=== PATIENT | female | born 1990 | race American Indian/Alaskan Native ===

== ENCOUNTER 2017-10-13 05:24 | Emergency (ER) | payer MEDICAID ==
[2017-10-13 05:31] VITALS: BP 124/75
--- NOTE | 2017-10-13 08:14 | XRay Report ---
FINAL REPORT PROCEDURE: XR CHEST ROUTINE 2V TECHNIQUE: PA and lateral views HISTORY: cough COMPARISON: None FINDINGS: The trachea is midline. The heart is normal in size. The lungs are clear. There is no evident pneumothorax or pleural fluid. The thoracic cage is intact. IMPRESSION: No radiographically evident acute cardiopulmonary disease
--- NOTE | 2017-10-13 08:14 | Emergency Department Report ---
- General Chief Complaint: Upper Respiratory Infection Stated Complaint: COUGH; CONGESTION; EARACHE Time Seen by Provider: 10/13/17 07:13 Source: patient Mode of arrival: Ambulatory Limitations: No Limitations - History of Present Illness Initial Comments: This is a 27-year-old female nontoxic, well nourished in appearance, no acute signs of distress presents to the ED with c/o of cough, nasal congestion, and bilateral earache x2 days. Patient describes cough as productive with yellow mucus production. Patient denies any recent travels, long car rides, or recent hospital stays. Patient denies any chest pain, shortness of breathe, fever, chills, headache, nausea, vomiting, numbness, tingling, stiff neck, blurry vision, hemoptysis. Denies any calf pain or tenderness. Patient denies any allergies or PMH. MD Complaint: cough, rhinorrhea, nasal congestion -: days(s) (2) Severity: mild Severity scale (0 -10): 8 Quality: aching Consistency: constant Improves With: nothing Worsens With: nothing Associated Symptoms: rhinorrhea, nasal congestion, cough, ear pain. denies: fever, chills, myalgias, diaphoresis, headache, sore throat, stiff neck, chest pain, shortness of breath, abdominal pain, nausea, vomiting, diarrhea, dysuria, rash, confusion, right sweats, weight loss, epistaxis, hoarseness Treatments Prior to Arrival: none - Related Data Previous Rx's Medication Instructions Recorded Last Taken Type Azithromycin [Zithromax Z-NIYAH] 250 mg PO DAILY #6 tablet 10/13/17 Unknown Rx Benzonatate [Tessalon Perle] 100 mg PO Q8H PRN #20 capsule 10/13/17 Unknown Rx Allergies Allergy/AdvReac Type Severity Reaction Status Date / Time No Known Allergies Allergy Verified 02/10/16 11:03 ED Review of Systems ROS: Stated complaint: COUGH; CONGESTION; EARACHE Other details as noted in HPI Constitutional: denies: chills, fever Eyes: denies: eye pain, eye discharge, vision change ENT: ear pain. denies: throat pain Respiratory: cough. denies: shortness of breath, wheezing Cardiovascular: denies: chest pain, palpitations Endocrine: no symptoms reported Gastrointestinal: denies: abdominal pain, nausea, diarrhea Genitourinary: denies: urgency, dysuria, discharge Musculoskeletal: denies: back pain, joint swelling, arthralgia Skin: denies: rash, lesions Neurological: denies: headache, weakness, paresthesias Psychiatric: denies: anxiety, depression Hematological/Lymphatic: denies: easy bleeding, easy bruising ED Past Medical Hx - Past Medical History Previous Medical History?: No Hx Hypertension: No Hx Congestive Heart Failure: No Hx Diabetes: No Hx Deep Vein Thrombosis: No Hx Renal Disease: No Hx Sickle Cell Disease: No Hx Seizures: No Hx Asthma: No Hx COPD: No Hx HIV: No Additional medical history: Vaginal delivery x 2 - Surgical History Past Surgical History?: No - Social History Smoking Status: Current Every Day Smoker Substance Use Type: None - Medications Home Medications: Home Medications Medication Instructions Recorded Confirmed Last Taken Type Azithromycin [Zithromax Z-NIYAH] 250 mg PO DAILY #6 tablet 10/13/17 Unknown Rx Benzonatate [Tessalon Perle] 100 mg PO Q8H PRN #20 capsule 10/13/17 Unknown Rx ED Physical Exam - General Limitations: No Limitations General appearance: alert, in no apparent distress - Head Head exam: Present: atraumatic, normocephalic, normal inspection - Eye Eye exam: Present: normal appearance, PERRL, EOMI. Absent: scleral icterus, conjunctival injection, nystagmus, periorbital swelling, periorbital tenderness Pupils: Present: normal accommodation - ENT ENT exam: Present: normal exam, normal orophraynx, mucous membranes moist, TM's normal bilaterally, normal external ear exam - Neck Neck exam: Present: normal inspection, full ROM. Absent: tenderness, meningismus, lymphadenopathy, thyromegaly - Respiratory Respiratory exam: Present: normal lung sounds bilaterally. Absent: respiratory distress, wheezes, rales, rhonchi, stridor, chest wall tenderness, accessory muscle use, decreased breath sounds, prolonged expiratory - Cardiovascular Cardiovascular Exam: Present: regular rate, normal rhythm, normal heart sounds. Absent: irregular rhythm, systolic murmur, diastolic murmur, rubs, gallop - GI/Abdominal GI/Abdominal exam: Present: soft, normal bowel sounds. Absent: distended, tenderness, guarding, rebound, rigid, diminished bowel sounds - Rectal Rectal exam: Present: deferred - Extremities Exam Extremities exam: Present: normal inspection, full ROM, normal capillary refill. Absent: tenderness, pedal edema, joint swelling, calf tenderness - Back Exam Back exam: Present: normal inspection, full ROM. Absent: tenderness, CVA tenderness (R), CVA tenderness (L), muscle spasm, paraspinal tenderness, vertebral tenderness, rash noted - Neurological Exam Neurological exam: Present: alert, oriented X3, CN II-XII intact, normal gait, reflexes normal - Psychiatric Psychiatric exam: Present: normal affect, normal mood - Skin Skin exam: Present: warm, dry, intact, normal color. Absent: rash ED Course Vital Signs 10/13/17 05:28 Temperature 98.5 F Pulse Rate 91 H Respiratory 18 Rate Blood Pressure 124/75 O2 Sat by Pulse 99 Oximetry - Reevaluation(s) Reevaluation #1: 10/13/17 08:30 Patient is speaking in full sentences with no signs of distress noted. ED Medical Decision Making - Medical Decision Making This is a 27-year-old female that presents with upper resp infection. Patient is stable and was examined by me. Chest xray has been obtained and dictated by radiologist with normal exam. Patient was notified of xray results with no questions noted. Patient is d/c with ruth and Jorge Marshall. Patient was instructed Follow-up with a primary care doctor in 3-5 days or if symptoms worsen and continue return to emergency room as soon as possible. At time time of discharge, the patient does not seem toxic or ill in appearance. No acute signs of distress noted. Patient agrees to discharge treatment plan of care. No further questions noted by the patient. Critical care attestation.: If time is entered above; I have spent that time in minutes in the direct care of this critically ill patient, excluding procedure time. ED Disposition Clinical Impression: Upper respiratory infection Qualifiers: URI type: unspecified URI Qualified Code(s): J06.9 - Acute upper respiratory infection, unspecified Disposition: - TO HOME OR SELFCARE Is pt being admited?: No Does the pt Need Aspirin: No Condition: Stable Instructions: Benzonatate (By mouth), Azithromycin (By mouth), Upper Respiratory Infection (ED) Additional Instructions: Follow-up with a primary care doctor in 3-5 days or if symptoms worsen and continue return to emergency room as soon as possible. Prescriptions: Azithromycin [Zithromax Z-NIYAH] 250 mg PO DAILY #6 tablet Benzonatate [Tessalon Perle] 100 mg PO Q8H PRN #20 capsule PRN Reason: Cough Referrals: SHAYY OWENS MD [Primary Care Provider] - 3-5 Days KEISHA MCKENZIE MD [Staff Physician] - 3-5 Days [facility] [place]Note 3[facility] [Outside] - 3-5 Days [facility] [Outside] - 3-5 Days Forms: Work/School Release Form(ED)
== END 2017-10-13 09:45 | disposition home or self-care (01) ==
LOC: ED 05:24
DX: J06.9 Acute upper respiratory infection, unspecified (principal); F17.200 Nicotine dependence, unspecified, uncomplicated
CPT/HCPCS: 71020

== ENCOUNTER 2017-11-18 13:33 | Emergency (ER) | payer MEDICAID ==
[2017-11-18 14:16] VITALS: BP 105/68
[2017-11-18 16:05] LABS: Basophils % (Auto) 0.2 % (0.0-1.8); Eosinophils # (Auto) 0.1 K/mm3 (0.0-0.4); Eosinophils % (Auto) 0.9 % (0.0-4.3); Hematocrit 33.7 % (30.3-42.9); Hemoglobin 10.4 gm/dl (10.1-14.3); Lymphocytes # (Auto) 0.8 K/mm3 (1.2-5.4); Lymphocytes % (Auto) 8.9 % (13.4-35.0); Mean Corpuscular HGB Conc 31 % (30-34); Mean Corpuscular Volume 72 fl (79-97); Monocytes # (Auto) 0.6 K/mm3 (0.0-0.8); Platelet Count 279 K/mm3 (140-440); Red Blood Count 4.67 M/mm3 (3.65-5.03); Red Cell Distribution Width 17.6 % (13.2-15.2)
[2017-11-18 16:11] LABS: Mean Corpuscular Hemoglobin 22 pg (28-32)
[2017-11-18 16:14] LABS: Bilirubin,Urine NEG (Negative); Blood,Urine LG (Negative); Color,Urine Yellow (Yellow); Mucus,Urine FEW /HPF; Nitrite,Urine NEG (Negative); Urobilinogen,Urine < 2.0 mg/dL (<2.0)
[2017-11-18 16:14] LABS: Alanine Aminotransferase 34 units/L (7-56); Albumin 4.2 g/dL (3.9-5); BUN/Creatinine Ratio 17; Blood Urea Nitrogen 10 mg/dL (7-17); Hemolysis Index 10
--- NOTE | 2017-11-18 21:48 | Emergency Department Report ---
HPI - General Chief Complaint: Abdominal Pain Time Seen by Provider: 11/18/17 20:48 - HPI HPI: Patient is a 27-year-old female who presents to ED with a five-year daughter complaining of nausea and one episode of vomiting that happened earlier today. Patient's mother states that she emboli that was made by a friend last night. Patient denies abdominal pain, fever, diarrhea or constipation. She has denies dysuria, vaginal bleeding or any urogenital symptoms. Patient states last menstrual period was 11/18/2017 and is currently on her cycle ED Past Medical Hx - Past Medical History Previous Medical History?: No Hx Hypertension: No Hx Congestive Heart Failure: No Hx Diabetes: No Hx Deep Vein Thrombosis: No Hx Renal Disease: No Hx Sickle Cell Disease: No Hx Seizures: No Hx Asthma: No Hx COPD: No Hx HIV: No Additional medical history: Vaginal delivery x 2 - Surgical History Past Surgical History?: No - Social History Smoking Status: Never Smoker Substance Use Type: None - Medications Home Medications: Home Medications Medication Instructions Recorded Confirmed Last Taken Type Azithromycin [Zithromax Z-NIYAH] 250 mg PO DAILY #6 tablet 10/13/17 Unknown Rx Benzonatate [Tessalon Perle] 100 mg PO Q8H PRN #20 capsule 10/13/17 Unknown Rx ED Review of Systems ROS: Stated complaint: ABDOMINAL PAIN Other details as noted in HPI Constitutional: denies: chills, fever Eyes: denies: eye pain, eye discharge, vision change ENT: denies: ear pain, throat pain Respiratory: denies: cough, shortness of breath, wheezing Cardiovascular: denies: chest pain, palpitations Endocrine: no symptoms reported Gastrointestinal: vomiting. denies: abdominal pain, nausea, diarrhea, constipation, hematochezia Genitourinary: denies: urgency, dysuria, discharge Musculoskeletal: denies: back pain, joint swelling, arthralgia Skin: denies: rash, lesions Neurological: denies: headache, weakness, paresthesias Psychiatric: denies: anxiety, depression Hematological/Lymphatic: denies: easy bleeding, easy bruising Physical Exam - Physical Exam Vital Signs: Vital Signs 11/18/17 14:14 Temperature 98.4 F Pulse Rate 78 Respiratory 16 Rate Blood Pressure 105/68 O2 Sat by Pulse 99 Oximetry Physical Exam: GENERAL: Alert and oriented x3, no apparent distress, Normal Gait, atraumatic. HEAD: Head is normocephalic and a-traumatic. MOUTH:Mouth is well hydrated and without lesions. Tonsils nonerythematous or swollen, Uvula midline, Tongue not elevated. Mucous membranes are moist. Posterior pharynx clear, no exudate or lesions. Patent airways. LUNGS: Symetrical with respiration, No wheezing, no rales or crackles, CTAB. HEART: S1, S2 present, regular rate and rhythm without murmur ABDOMEN: No organomegaly was noted,Positive bowel sounds, soft, and non- distended. . Nontender to palpation on all Quadrants, NO CVA tenderness. BACK: Full range of motion, no spinal tenderness, nontender to palpation. SKIN: Warm and dry, No lesions, No ulceration or induration present. ED Course Vital Signs 11/18/17 14:14 Temperature 98.4 F Pulse Rate 78 Respiratory 16 Rate Blood Pressure 105/68 O2 Sat by Pulse 99 Oximetry ED Medical Decision Making - Lab Data Result diagrams: 11/18/17 15:40 11/18/17 15:40 - Medical Decision Making 27 -year-old female presents with mild gastroenteritis from ingested food ED course: CBC, urinalysis, CMP ordered. All labs within normal limits no abnormalities Patient able to tolerate fluids by mouth in the ED. Patient is resting comfortably in ED bed., I discussed with the pt to follow-up with primary care physician in 3-5 days. I discussed with the mother's symptoms worsen to return to ED. I discussed with mother to avoid fatty foods and stick to soft diet. Vital signs are normal patient is in no acute distress Critical care attestation.: If time is entered above; I have spent that time in minutes in the direct care of this critically ill patient, excluding procedure time. ED Disposition Clinical Impression: Gastroenteritis Food poisoning Qualifiers: Encounter type: initial encounter Injury intent: accidental or unintentional Qualified Code(s): T62.91XA - Toxic effect of unspecified noxious substance eaten as food, accidental (unintentional), initial encounter Disposition: - TO HOME OR SELFCARE Is pt being admited?: No Does the pt Need Aspirin: No Condition: Stable Instructions: Gastroenteritis (ED), Food Poisoning (ED), Abdominal Pain (ED) Additional Instructions: Make sure to follow up with the primary care physician as discussed. If you have any worsening symptoms or develop new symptoms please return to ED immediately. Drink plenty of fluids daily. Avoid fatty foods and eating outside Referrals: IOANA ASHRAF MD [Primary Care Provider] - 3-5 Days Forms: Work/School Release Form(ED) Time of Disposition: 21:45
== END 2017-11-18 22:00 | disposition home or self-care (01) ==
LOC: ED 13:33
DX: T62.8X1A Toxic effect of other specified noxious substances eaten as food, accidental (unintentional), initial encounter (principal); K52.89 Other specified noninfective gastroenteritis and colitis; Y92.89 Other specified places as the place of occurrence of the external cause
CPT/HCPCS: 36415; 80053; 81001; 85025; 99283

== ENCOUNTER 2018-02-23 10:35 | Emergency (ER) | payer MEDICAID ==
[2018-02-23 10:50] VITALS: BP 121/75
[2018-02-23 11:19] LABS: Hematocrit 29.4 % (30.3-42.9); Hemoglobin 8.8 gm/dl (10.1-14.3); Mean Corpuscular HGB Conc 30 % (30-34); Platelet Count 389 K/mm3 (140-440); Red Blood Count 4.27 M/mm3 (3.65-5.03); Red Cell Distribution Width 19.5 % (13.2-15.2)
[2018-02-23 11:33] LABS: Mean Corpuscular Hemoglobin 21 pg (28-32); Mean Corpuscular Volume 69 fl (79-97)
[2018-02-23] MEDS ORDERED: TYLENOL PO ONE (11:59)
[2018-02-23 12:17] LABS: Bilirubin,Urine NEG (Negative); Blood,Urine LG (Negative); Color,Urine Yellow (Yellow); Mucus,Urine 1+ /HPF; Urobilinogen,Urine < 2.0 mg/dL (<2.0)
--- NOTE | 2018-02-23 12:29 | Emergency Department Report ---
HPI - General Chief Complaint: Vaginal Bleeding Time Seen by Provider: 02/23/18 11:55 - HPI HPI: The patient is a 27-year-old female who presents for evaluation of abdominal pain and vaginal bleeding. The patient reports 3 weeks of lower crampy abdominal pain and persistent vaginal bleeding. She states her abdominal pain is crampy in quality, mild in severity, exacerbated with position changes, waxing and waning. Her vaginal bleeding has been severe and constant. The patient denies fever, chills, night sweats, diarrhea, blood in the stool, dark tarry stool, dysuria, hematuria, hematemesis, recurrent epistaxis, easy bruising or bleeding, flank pain, genital discharge, inability to pass flatus. ED Past Medical Hx - Past Medical History Hx Hypertension: No Hx Congestive Heart Failure: No Hx Diabetes: No Hx Deep Vein Thrombosis: No Hx Renal Disease: No Hx Sickle Cell Disease: No Hx Seizures: No Hx Asthma: No Hx COPD: No Hx HIV: No Additional medical history: Vaginal delivery x 2 - Social History Smoking Status: Never Smoker - Medications Home Medications: Home Medications Medication Instructions Recorded Confirmed Last Taken Type Azithromycin [Zithromax Z-NIYAH] 250 mg PO DAILY #6 tablet 10/13/17 Unknown Rx Benzonatate [Tessalon Perle] 100 mg PO Q8H PRN #20 capsule 10/13/17 Unknown Rx medroxyPROGESTERone ACETATE 5 mg PO QDAY #5 tablet 02/23/18 Unknown Rx [Provera] traMADol [Ultram 50 MG tab] 50 mg PO Q6HR PRN #12 tablet 02/23/18 Unknown Rx ED Review of Systems ROS: Stated complaint: VAGINAL BLEEDING Other details as noted in HPI Constitutional: denies: fever ENT: denies: throat or neck pain Respiratory: denies: cough, shortness of breath Cardiovascular: denies: chest pain Endocrine: denies unexplained weight loss or gain Gastrointestinal: denies: abdominal pain, nausea Genitourinary: denies: dysuria Musculoskeletal: denies: leg swelling Skin: denies: rash Neurological: denies: headache Hematological/Lymphatic: denies: easy bleeding or easy bruising Psych: denies sadness or hopelessness Physical Exam - Physical Exam Vital Signs: Vital Signs 02/23/18 10:46 Temperature 98.2 F Pulse Rate 95 H Respiratory 19 Rate Blood Pressure 121/75 O2 Sat by Pulse 100 Oximetry Physical Exam: General: well-nourished, well-developed, no acute distress Head: Normocephalic, atraumatic Eyes: normal sclera ENT: Mucous membranes are pink and moist Neck: trachea midline, neck supple, No neck stiffness, no cervical adenopathy Respiratory: Breath sounds equal bilaterally, no wheezing, rales, or rhonchi Cardio: S1 and S2 present, no murmurs, rubs, gallops, capillary refill is brisk Abdomen: Normoactive bowel sounds, soft abdomen, she will be tenderness to palpation present, no pain at McBurney's point, Hernandez sign negative, no rigidity, no guarding or rebound tenderness Chest WALL/Back: No tenderness to palpation of the chest wall, no CVA tenderness with percussion Musc: No pitting edema Skin: No rash Neuro: no facial drooping, normal speech Psych: Normal affect ED Course Vital Signs 02/23/18 10:46 Temperature 98.2 F Pulse Rate 95 H Respiratory 19 Rate Blood Pressure 121/75 O2 Sat by Pulse 100 Oximetry ED Medical Decision Making - Lab Data Result diagrams: 02/23/18 10:56 - Medical Decision Making The patient was seen and examined by myself. The patient is placed on a telemetry monitor and continuous pulse ox. On initial evaluation, the patient was found to be in no distress. Evaluation orders are placed. The patient given a tablet of Tylenol for pain. Lab results revealed mild anemia, hemoglobin 8, and otherwise labs were not concerning including normal platelet level and negative test. The patient was reevaluated and reported that their symptoms were markedly improved. The patient is stable for discharge with outpatient follow-up. The patient is given follow-up and return instructions. The patient expressed understanding and agreed with the plan. The patient is discharged in stable condition. Critical care attestation.: If time is entered above; I have spent that time in minutes in the direct care of this critically ill patient, excluding procedure time. ED Disposition Clinical Impression: Vaginal bleeding, DUB (dysfunctional uterine bleeding), Acute non intractable tension-type headache, Anemia due to chronic blood loss Disposition: TO HOME OR SELFCARE Is pt being admited?: No Does the pt Need Aspirin: No Condition: Stable Instructions: Dysfunctional Uterine Bleeding (ED), Acute Headache (ED), Menstruation (ED) Referrals: IOANA ASHARF MD [Primary Care Provider] - 3-5 Days [facility] [Provider Group] - 3-5 Days MEAGHAN CALLOWAY MD [Staff Physician] - 3-5 Days Time of Disposition: 12:12
[2018-02-23 12:30] LABS: Anisocytosis 1+; Hypochromasia 1+; Total Cells Counted 100
[2018-02-23 12:31] LABS: Platelet Estimate Consistent w Auto
== END 2018-02-23 12:52 | disposition home or self-care (01) ==
LOC: ED 10:35
DX: N93.8 Other specified abnormal uterine and vaginal bleeding (principal); G44.209 Tension-type headache, unspecified, not intractable; D50.0 Iron deficiency anemia secondary to blood loss (chronic)
CPT/HCPCS: 36415; 81001; 84703; 85007; 85025; 86850; 86900; 86901

== ENCOUNTER 2018-02-27 09:49 | Emergency (ER) | payer OTHER, MEDICAID ==
[2018-02-27 10:10] VITALS: BP 135/86
[2018-02-27] MEDS ORDERED: MOTRIN PO ONE (10:33)
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
== END 2018-02-27 11:50 | disposition home or self-care (01) ==
LOC: ED 09:49
DX: S13.4XXA Sprain of ligaments of cervical spine, initial encounter (principal); S39.012A Strain of muscle, fascia and tendon of lower back, initial encounter; F17.200 Nicotine dependence, unspecified, uncomplicated; V49.49XA Driver injured in collision with other motor vehicles in traffic accident, initial encounter; Y93.89 Activity, other specified; Y92.89 Other specified places as the place of occurrence of the external cause; Y99.8 Other external cause status
CPT/HCPCS: 99282

== ENCOUNTER 2018-03-03 15:56 | Emergency (ER) | payer MEDICAID, OTHER ==
[2018-03-03 16:15] VITALS: BP 122/76
[2018-03-03] MEDS ORDERED: TYLENOL ONE (19:44)
[2018-03-03] MEDS ORDERED: TYLENOL PO ONE (19:47)
--- NOTE | 2018-03-03 20:45 | Emergency Department Report ---
ED Female HPI - General Chief complaint: Urogenital-Female Stated complaint: VAGINAL ITCHING/BUMPS Time Seen by Provider: 03/03/18 19:59 Source: patient Mode of arrival: Ambulatory Limitations: No Limitations - History of Present Illness Initial comments: This is a 27-year-old female nontoxic, well nourished in appearance, no acute signs of distress presents to the ED with c/o of vaginal discharge and itching x2 days. Patient stated she is not concerned about STD but will like to be tested. Patient stated that she just finished a course of antibiotics for a possible STD. Patient denies any abdominal pain, fever, chills, headache, nausea, vomiting, chest pain, shortness of breathe, back pain, numbness or tingling. Patient denies any vaginal bleeding. Patient denies any allergies or PMH. MD Complaint: vaginal discharge, other (itching) -: days(s) (2) Severity: mild Quality: other (itching) Consistency: constant Improves with: none Worsens with: none Are you Now?: No Last Menstrual Period: 01/13/18 EDC: 10/20/18 Associated Symptoms: vaginal discharge. denies: vaginal bleeding, abdominal pain, nausea/vomiting, fever/chills, headaches, loss of appetite, dysuria, hematuria, rash, seizure, shortness of breath, syncope, weakness - Related Data Sexually active: Yes Previous Rx's Medication Instructions Recorded Last Taken Type Azithromycin [Zithromax Z-NIYAH] 250 mg PO DAILY #6 tablet 10/13/17 Unknown Rx Benzonatate [Tessalon Perle] 100 mg PO Q8H PRN #20 capsule 10/13/17 Unknown Rx medroxyPROGESTERone ACETATE 5 mg PO QDAY #5 tablet 02/23/18 Unknown Rx [Provera] traMADol [Ultram 50 MG tab] 50 mg PO Q6HR PRN #12 tablet 02/23/18 Unknown Rx Cyclobenzaprine [Flexeril] 10 mg PO QHS PRN #7 tablet 02/27/18 Unknown Rx Ibuprofen [Motrin] 600 mg PO Q8H PRN #30 tablet 02/27/18 Unknown Rx Fluconazole [Diflucan TAB] 150 mg PO ONCE #1 tablet 03/03/18 Unknown Rx metroNIDAZOLE [Flagyl] 500 mg PO Q12HR #14 tab 03/03/18 Unknown Rx Allergies Allergy/AdvReac Type Severity Reaction Status Date / Time No Known Allergies Allergy Verified 02/10/16 11:03 ED Review of Systems ROS: Stated complaint: VAGINAL ITCHING/BUMPS Other details as noted in HPI Constitutional: denies: chills, fever Eyes: denies: eye pain, eye discharge, vision change ENT: denies: ear pain, throat pain Respiratory: denies: cough, shortness of breath, wheezing Cardiovascular: denies: chest pain, palpitations Endocrine: no symptoms reported Gastrointestinal: denies: abdominal pain, nausea, diarrhea Genitourinary: discharge. denies: urgency, dysuria Musculoskeletal: denies: back pain, joint swelling, arthralgia Skin: denies: rash, lesions Neurological: denies: headache, weakness, paresthesias Psychiatric: denies: anxiety, depression Hematological/Lymphatic: denies: easy bleeding, easy bruising ED Past Medical Hx - Past Medical History Hx Hypertension: No Hx Congestive Heart Failure: No Hx Diabetes: No Hx Deep Vein Thrombosis: No Hx Renal Disease: No Hx Sickle Cell Disease: No Hx Seizures: No Hx Asthma: No Hx COPD: No Hx HIV: No Additional medical history: Vaginal delivery x 2 - Social History Smoking Status: Never Smoker Substance Use Type: Alcohol - Medications Home Medications: Home Medications Medication Instructions Recorded Confirmed Last Taken Type Azithromycin [Zithromax Z-NIYAH] 250 mg PO DAILY #6 tablet 10/13/17 Unknown Rx Benzonatate [Tessalon Perle] 100 mg PO Q8H PRN #20 capsule 10/13/17 Unknown Rx medroxyPROGESTERone ACETATE 5 mg PO QDAY #5 tablet 02/23/18 Unknown Rx [Provera] traMADol [Ultram 50 MG tab] 50 mg PO Q6HR PRN #12 tablet 02/23/18 Unknown Rx Cyclobenzaprine [Flexeril] 10 mg PO QHS PRN #7 tablet 02/27/18 Unknown Rx Ibuprofen [Motrin] 600 mg PO Q8H PRN #30 tablet 02/27/18 Unknown Rx Fluconazole [Diflucan TAB] 150 mg PO ONCE #1 tablet 03/03/18 Unknown Rx metroNIDAZOLE [Flagyl] 500 mg PO Q12HR #14 tab 03/03/18 Unknown Rx ED Physical Exam - General Limitations: No Limitations General appearance: alert, in no apparent distress - Head Head exam: Present: atraumatic, normocephalic - Eye Eye exam: Present: normal appearance - ENT ENT exam: Present: normal exam, mucous membranes moist - Neck Neck exam: Present: normal inspection, full ROM. Absent: tenderness, meningismus - Respiratory Respiratory exam: Present: normal lung sounds bilaterally. Absent: respiratory distress, wheezes, rales, rhonchi, stridor, chest wall tenderness, accessory muscle use, decreased breath sounds, prolonged expiratory - Cardiovascular Cardiovascular Exam: Present: regular rate, normal rhythm, normal heart sounds. Absent: bradycardia, tachycardia, irregular rhythm, systolic murmur, diastolic murmur, rubs, gallop - GI/Abdominal GI/Abdominal exam: Present: soft, normal bowel sounds. Absent: distended, tenderness, guarding, rebound, rigid, diminished bowel sounds - Rectal Rectal exam: Present: deferred - External exam: Present: normal external exam, other (order booker Deepika present during exam). Absent: erythema, swelling, lesions, lacerations, ecchymosis, bleeding Speculum exam: Present: normal speculum exam, cervical discharge (cottage cheese in appearance), other (order booker Deepika present during exam). Absent: erythema, vaginal discharge, vaginal bleeding, foreign body, tissue, laceration Bi-manual exam: Present: normal bi-manual exam, other (order booker Deepika present during exam). Absent: cervical motion tendernes, adnexal tenderness, adnexal mass, uterine enlargement, uterine tenderness - Extremities Exam Extremities exam: Present: normal inspection, full ROM, normal capillary refill - Back Exam Back exam: Present: normal inspection, full ROM - Neurological Exam Neurological exam: Present: alert, oriented X3 - Psychiatric Psychiatric exam: Present: normal affect, normal mood - Skin Skin exam: Present: warm, dry, intact, normal color. Absent: rash ED Course Vital Signs 03/03/18 16:11 Temperature 99.5 F Pulse Rate 84 Respiratory 17 Rate Blood Pressure 122/76 O2 Sat by Pulse 99 Oximetry - Reevaluation(s) Reevaluation #1: 03/03/18 21:25 Patient is speaking in full sentences with no signs of distress noted. ED Medical Decision Making - Medical Decision Making This is a 27-year-old female that presents with vaginal yeast and BV. Patient is stable and was examined by me. Nursing Assistant present at exam. UA obtained. Wet prep obtained. Patient will be treated with Diflucan and flagyl. Patient was struck to return in 3 days for results of gonorrhea or chlamydia. Patient that she is not concerned about it. Patient was instructed to Follow-up with a primary care doctor in 3-5 days or if symptoms worsen and continue return to emergency room as soon as possible. At time of discharge, the patient does not seem toxic or ill in appearance. No acute signs of distress noted. Patient agrees to discharge treatment plan of care. No further questions noted by the patient. Critical care attestation.: If time is entered above; I have spent that time in minutes in the direct care of this critically ill patient, excluding procedure time. ED Disposition Clinical Impression: Bacterial vaginosis, Vaginal yeast infection Disposition: TO HOME OR SELFCARE Is pt being admited?: No Does the pt Need Aspirin: No Condition: Stable Instructions: Bacterial Vaginosis (ED), Vulvovaginal Candidiasis (ED), Metronidazole (By mouth), Fluconazole (By mouth) Additional Instructions: Follow-up with a primary care doctor in 3-5 days or if symptoms worsen and continue return to emergency room as soon as possible. Prescriptions: Fluconazole [Diflucan TAB] 150 mg PO ONCE #1 tablet metroNIDAZOLE [Flagyl] 500 mg PO Q12HR #14 tab Referrals: PRIMARY CAREMD [Primary Care Provider] - 3-5 Days KEISHA MCKENZIE MD [Staff Physician] - 3-5 Days [facility] [Outside] - 3-5 Days [facility] [Outside] - 3-5 Days Forms: STI Treatment and Prevention, Work/School Release Form(ED)
[2018-03-03 21:22] LABS: Bilirubin,Urine NEG (Negative); Blood,Urine NEG (Negative); Color,Urine Yellow (Yellow); Mucus,Urine 2+ /HPF; Protein,Urine <15 mg/dL mg/dL (Negative)
[2018-03-03 21:23] LABS: HCG Qualitative,Urine Negative (Negative)
== END 2018-03-03 21:55 | disposition home or self-care (01) ==
LOC: ED 15:56
DX: N76.0 Acute vaginitis (principal)
CPT/HCPCS: 81001; 81025; 87086; 87210; 87591; 99283

== ENCOUNTER 2018-03-24 04:41 | Emergency (ER) | payer MEDICAID, OTHER ==
[2018-03-24 05:29] LABS: Bacteria,Urine 1+ /HPF (Negative); Bilirubin,Urine NEG (Negative); Blood,Urine NEG (Negative); Color,Urine Yellow (Yellow); Mucus,Urine 3+ /HPF
[2018-03-24 05:34] LABS: HCG Qualitative,Urine Negative (Negative)
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
[2018-03-24 09:21] VITALS: BP 121/85
== END 2018-03-24 11:04 | disposition home or self-care (01) ==
LOC: ED 04:41
DX: N30.00 Acute cystitis without hematuria (principal); N76.0 Acute vaginitis
CPT/HCPCS: 81001; 81025; 87086

== ENCOUNTER 2019-01-26 10:22 | Emergency (ER) | payer SELFPAY ==
--- NOTE | 2019-01-26 12:08 | Emergency Department Report ---
Chief Complaint: Extremity Problem,Nontraumatic Stated Complaint: LFT HAND INFECTED/PAIN Time Seen by Provider: 01/26/19 12:06 - HPI History of Present Illness: PARONYCHIA OF FINGER VSS MSE COMPLETED - Exam Vital Signs: Vital Signs 01/26/19 10:39 Temperature 97.7 F Pulse Rate 87 Respiratory 16 Rate Blood Pressure 132/88 O2 Sat by Pulse 99 Oximetry MSE screening note: Focused history and physical exam performed. Due to findings the following was ordered: ED Disposition for MSE Condition: Stable
--- NOTE | 2019-01-26 13:02 | Emergency Department Report ---
ED General Adult HPI - General Chief complaint: Extremity Problem,Nontraumatic Stated complaint: LFT HAND INFECTED/PAIN Time Seen by Provider: 01/26/19 12:06 Source: patient Mode of arrival: Ambulatory Limitations: No Limitations - History of Present Illness Initial comments: Patient is 28 years old female with no significant past medical history. Amarilis ent presented to the ER with left middle finger nail bed infection. Patient stated that she was seen at another ER 2 weeks ago and she was given Bactrim but it did not help. Patient denied any fever or chills. No nausea or vomiting. Severity scale (0 -10): 10 - Related Data Previous Rx's Medication Instructions Recorded Last Taken Type Fluconazole [Diflucan TAB] 150 mg PO QDAY 3 Days #3 tablet 03/24/18 Unknown Rx Nystatin Oint [Mycostatin Oint] 1 applicatio TP BID 7 Days #1 tube 03/24/18 Unknown Rx cephALEXin [Keflex] 500 mg PO Q8HR 5 Days #15 cap 03/24/18 Unknown Rx Allergies Allergy/AdvReac Type Severity Reaction Status Date / Time No Known Allergies Allergy Verified 02/10/16 11:03 ED Review of Systems ROS: Stated complaint: LFT HAND INFECTED/PAIN Other details as noted in HPI Comment: All other systems reviewed and negative Constitutional: denies: chills, fever Respiratory: denies: cough Cardiovascular: denies: chest pain, palpitations Gastrointestinal: denies: nausea, vomiting ED Past Medical Hx - Past Medical History Previous Medical History?: No Hx Hypertension: No Hx Congestive Heart Failure: No Hx Diabetes: No Hx Deep Vein Thrombosis: No Hx Renal Disease: No Hx Sickle Cell Disease: No Hx Seizures: No Hx Asthma: No Hx COPD: No Hx HIV: No Additional medical history: Vaginal yeast infection. Bacterial vaginosis. Abnormal menses - Surgical History Past Surgical History?: No - Social History Smoking Status: Current Every Day Smoker Substance Use Type: Marijuana - Medications Home Medications: Home Medications Medication Instructions Recorded Confirmed Last Taken Type Fluconazole [Diflucan TAB] 150 mg PO QDAY 3 Days #3 tablet 03/24/18 Unknown Rx Nystatin Oint [Mycostatin Oint] 1 applicatio TP BID 7 Days #1 tube 03/24/18 Unknown Rx cephALEXin [Keflex] 500 mg PO Q8HR 5 Days #15 cap 05/21/18 Unknown Rx ED Physical Exam - General Limitations: No Limitations General appearance: alert, in no apparent distress - Respiratory Respiratory exam: Present: normal lung sounds bilaterally - Cardiovascular Cardiovascular Exam: Present: regular rate, normal heart sounds - Extremities Exam Extremities exam: Present: other (left middle finger nailbed with swelling but no evidence of fluctuation.) - Neurological Exam Neurological exam: Present: alert, oriented X3, CN II-XII intact ED Course Vital Signs 01/26/19 10:39 Temperature 97.7 F Pulse Rate 87 Respiratory 16 Rate Blood Pressure 132/88 O2 Sat by Pulse 99 Oximetry Critical care attestation.: If time is entered above; I have spent that time in minutes in the direct care of this critically ill patient, excluding procedure time. ED Disposition Clinical Impression: Paronychia of finger Disposition: DC-01 TO HOME OR SELFCARE Is pt being admited?: No Condition: Stable Instructions: Paronychia (ED) Referrals: [facility] [Provider Group] - 3-5 Days
[2019-01-26 13:33] VITALS: BP 130/81
== END 2019-01-26 13:32 | disposition home or self-care (01) ==
LOC: ED 10:22
DX: L03.012 Cellulitis of left finger (principal); F17.200 Nicotine dependence, unspecified, uncomplicated; F12.10 Cannabis abuse, uncomplicated
CPT/HCPCS: 99282

== ENCOUNTER 2019-03-14 22:07 | Emergency (ER) | payer MEDICAID ==
--- NOTE | 2019-03-14 23:05 | Emergency Department Report ---
Blank Doc - Documentation Documentation: Patient is putting her finger down her throught to make herself vomit. Witness by this provider in Acute waiting area.
[2019-03-15] MEDS ORDERED: MORPHINE IV ONE ×2 (03:02→09:04)
[2019-03-15] MEDS ORDERED: NACL 0.9% 1000 ML 1,000 ML IV ONE (03:03)
[2019-03-15] MEDS ORDERED: ZOFRAN IV ONE ×2 (03:03→09:06)
[2019-03-15 03:28] LABS: Hematocrit 32.9 % (30.3-42.9); Hemoglobin 10.2 gm/dl (10.1-14.3); Mean Corpuscular HGB Conc 31 % (30-34); Mean Corpuscular Volume 70 fl (79-97); Platelet Count 304 K/mm3 (140-440); Red Blood Count 4.68 M/mm3 (3.65-5.03); Red Cell Distribution Width 19.6 % (13.2-15.2)
[2019-03-15 03:42] LABS: Alanine Aminotransferase 8 units/L (7-56); Albumin 3.9 g/dL (3.9-5); BUN/Creatinine Ratio 15; Blood Urea Nitrogen 9 mg/dL (7-17); Calcium 9.1 mg/dL (8.4-10.2); Hemolysis Index 0
[2019-03-15 04:25] LABS: Basophils % (Manual) 0 % (0.0-1.8); Crenated RBC 1+; Eosinophils % (Manual) 0 % (0.0-4.3); Hypochromasia 2+; Large Platelets 1+; Ovalocytes 1+; Total Cells Counted 100
[2019-03-15 04:26] LABS: Platelet Estimate Consistent w Auto
[2019-03-15] MEDS ORDERED: TORADOL IV ONE ×2 (06:15→09:01)
[2019-03-15] MEDS ORDERED: TORADOL ONE (06:18)
--- NOTE | 2019-03-15 07:10 | Emergency Department Report ---
<[email or web address] - Last Filed: 03/15/19 07:11> ED Abdominal Pain HPI - General Chief Complaint: Abdominal Pain Stated Complaint: ABDOMINAL PAIN W/NAUSEA AND VOMITING Time Seen by Provider: 03/15/19 01:00 Source: EMS Mode of arrival: Stretcher Limitations: No Limitations - History of Present Illness Initial Comments: Patient is a A0 and 28 year-old female with no past medical history presents to the ED with complaint of acute onset persistent nausea and vomiting and periumbilical pain for the last 2 days. Patient states that she initially thought that she may have had food poisoning but that the symptoms got worse and that she is not keeping anything down. Patient denies dysuria, urinary frequency and urgency, vaginal bleeding, vaginal discharge, headache, chest pain, shortness of breath, low back pain, hematuria, fever and chills. Patient states that no one else at home had similar symptoms. MD Complaint: abdominal pain, other (nausea and vomiting) -: Sudden, days(s) (2) Location: periumbilical Radiation: RLQ, suprapubic Migration to: no migration Severity scale (0 -10): 8 Quality: cramping, aching, sharp Consistency: constant Improves With: nothing Worsens With: vomiting, movement Context: possible food poisoning Associated Symptoms: denies: diarrhea, fever, chills, constipation, dysuria, hematemesis, hematochezia, melena, hematuria, anorexia, syncope - Related Data LMP (females 10-50): last week Previous Rx's Medication Instructions Recorded Last Taken Type Fluconazole [Diflucan TAB] 150 mg PO QDAY 3 Days #3 tablet 03/24/18 Unknown Rx Nystatin Oint [Mycostatin Oint] 1 applicatio TP BID 7 Days #1 tube 03/24/18 Unknown Rx cephALEXin [Keflex] 500 mg PO Q8HR 5 Days #15 cap 03/24/18 Unknown Rx Ciprofloxacin HCl [Ciprofloxacin 500 mg PO Q12H #14 tab 01/26/19 Unknown Rx TAB] Fluconazole [Diflucan TAB] 100 mg PO BID #10 tablet 01/26/19 Unknown Rx Allergies Allergy/AdvReac Type Severity Reaction Status Date / Time No Known Allergies Allergy Verified 02/10/16 11:03 ED Review of Systems Comment: All other systems reviewed and negative Constitutional: no symptoms reported, see HPI. denies: chills, diaphoresis, fever, malaise, weakness Eyes: as per HPI. denies: eye pain, eye discharge, vision change ENT: as per HPI. denies: ear pain, throat pain, dental pain, hearing loss, epistaxis Respiratory: no symptoms reported, see HPI. denies: cough, orthopnea, shortness of breath, SOB with exertion, SOB at rest, stridor Cardiovascular: as per HPI. denies: chest pain, palpitations, dyspnea on exertion, edema, syncope, paroxysmal nocturnal dyspnea Endocrine: no symptoms reported, see HPI. denies: excessive sweating, flushing, intolerance to cold, increased hunger, increased urine, unexplained weight loss Gastrointestinal: as per HPI, abdominal pain, nausea, vomiting. denies: diarrhea, constipation, hematemesis, melena, hematochezia Genitourinary: as per HPI. denies: urgency, dysuria, frequency, hematuria, discharge, abnormal menses, dyspareunia Musculoskeletal: as per HPI. denies: back pain Skin: as per HPI. denies: rash, lesions, change in color, change in hair/nails Neurological: as per HPI. denies: headache, weakness, numbness, paresthesias Psychiatric: as per HPI Hematological/Lymphatic: as per HPI ED Past Medical Hx - Past Medical History Previous Medical History?: Yes Hx Hypertension: No Hx Congestive Heart Failure: No Hx Diabetes: No Hx Deep Vein Thrombosis: No Hx Renal Disease: No Hx Sickle Cell Disease: No Hx Seizures: No Hx Asthma: No Hx COPD: No Hx HIV: No Additional medical history: Vaginal yeast infection. Bacterial vaginosis. Abnormal menses - Surgical History Past Surgical History?: No - Social History Smoking Status: Current Some Day Smoker Substance Use Type: None - Medications Home Medications: Home Medications Medication Instructions Recorded Confirmed Last Taken Type Fluconazole [Diflucan TAB] 150 mg PO QDAY 3 Days #3 tablet 03/24/18 Unknown Rx Nystatin Oint [Mycostatin Oint] 1 applicatio TP BID 7 Days #1 tube 03/24/18 Unknown Rx cephALEXin [Keflex] 500 mg PO Q8HR 5 Days #15 cap 03/24/18 Unknown Rx Ciprofloxacin HCl [Ciprofloxacin 500 mg PO Q12H #14 tab 01/26/19 Unknown Rx TAB] Fluconazole [Diflucan TAB] 100 mg PO BID #10 tablet 01/26/19 Unknown Rx ED Physical Exam - General Limitations: No Limitations General appearance: alert, in no apparent distress - Head Head exam: Present: atraumatic, normocephalic, normal inspection - Eye Eye exam: Present: normal appearance, PERRL, EOMI - ENT ENT exam: Present: normal exam, normal orophraynx, mucous membranes moist, TM's normal bilaterally, normal external ear exam - Neck Neck exam: Present: normal inspection, full ROM. Absent: tenderness, meningismus - Respiratory Respiratory exam: Present: normal lung sounds bilaterally. Absent: respiratory distress, rales, rhonchi, chest wall tenderness, accessory muscle use, decreased breath sounds - Cardiovascular Cardiovascular Exam: Present: regular rate, normal rhythm, normal heart sounds. Absent: bradycardia, tachycardia - GI/Abdominal GI/Abdominal exam: Present: soft, tenderness (periumbilical), guarding, normal bowel sounds. Absent: distended, hyperactive bowel sounds - Rectal Rectal exam: Present: deferred - Extremities Exam Extremities exam: Present: normal inspection, full ROM, normal capillary refill - Back Exam Back exam: Present: normal inspection, full ROM. Absent: tenderness, CVA tenderness (R), CVA tenderness (L), muscle spasm, paraspinal tenderness, vertebral tenderness - Neurological Exam Neurological exam: Present: alert, oriented X3, CN II-XII intact, normal gait, reflexes normal - Psychiatric Psychiatric exam: Present: normal affect - Skin Skin exam: Present: warm, dry, intact, normal color ED Course - Reevaluation(s) Reevaluation #1: 03/15/19 07:15 Patient is alert and oriented 3 and is not in distress. Vital signs are stable. Labs are drawn and patient treated for pain and also today for nausea and vomiting. Abdomen pelvis CT scan with contrast was also ordered. On reevaluation, patient's nausea and vomiting controlled as well as nausea and vomiting in the ED. Patient resting comfortably on in the room in no distress. ED Medical Decision Making - Lab Data Result diagrams: 03/15/19 03:07 03/15/19 03:07 - Medical Decision Making Patient is alert and oriented 3 and is not in distress. Lab results were reviewed and are unremarkable. Urinalysis result is pending. Abdominal pelvis CT scan with contrast also pending. 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 ED Disposition Clinical Impression: Nausea and vomiting in adult Abdominal pain Qualifiers: Abdominal location: generalized Qualified Code(s): R10.84 - Generalized abdominal pain Disposition: OP ADMIT IP TO THIS HOSP Condition: Stable Referrals: [facility] MD D[facility]US [Primary Care Provider] - 3-5 Days <KAMRON CHAPA - Last Filed: 03/15/19 16:42> ED Review of Systems ROS: Stated complaint: ABDOMINAL PAIN W/NAUSEA AND VOMITING Other details as noted in HPI ED Physical Exam - GI/Abdominal GI/Abdominal exam: Present: tenderness - External exam: Present: normal external exam, other (signs sales representative Yokasta RN present during exam). Absent: erythema, swelling, lesions, lacerations, ecchymosis, bleeding Speculum exam: Present: vaginal bleeding (patient is on her menstural cycle), other (signs sales representative Yokasta RN present during exam). Absent: erythema, vaginal discharge, cervical discharge, foreign body, tissue, laceration Bi-manual exam: Present: normal bi-manual exam, other (signs sales representative Yokasta RN present during exam). Absent: cervical motion tendernes, adnexal tenderness, adnexal mass, uterine enlargement, uterine tenderness ED Course Vital Signs 03/15/19 03/15/19 03/15/19 09:19 09:20 09:49 Temperature 98.1 F Pulse Rate 65 Respiratory 17 17 15 Rate Blood Pressure 129/80 [Left] O2 Sat by Pulse 97 Oximetry 03/15/19 13:59 Temperature 98.1 F Pulse Rate 65 Respiratory 15 Rate Blood Pressure 115/79 [Left] O2 Sat by Pulse 100 Oximetry - Reevaluation(s) Reevaluation #2: 03/15/19 09:11 Patient is moved to a bed for a physical exam. Patient does have paraumbilical area tenderness. I will give patient more of Zofran and morphine. Reevaluation #3: 03/15/19 13:51 Patient is resting comfortably with no signs of distress noted. Pending CT results. - Consultations Consultation #1: 03/15/19 10:31 Patient has been consulted with Dr. Vega about patient history, physical exam, and labs/CT results and examined and sagrees to ED plan of care with repeat PO contrast of CT abdominal/pelvic. Consultation #2: 03/15/19 14:34 Patient has been consulted with Dr. Baumann (general surgeon) about patient history, physical exam, and labs/CT results and stated patient to be admitted by hospitalist and will follow up with patient. Consultation #3: 03/15/19 14:47 Patient has been consulted with Dr. Nakia v about patient history, physical exam, and labs/CT results and accepts patient to services. ED Medical Decision Making - Lab Data Result diagrams: 03/15/19 03:07 03/15/19 03:07 - Medical Decision Making This is a 28-year-old female that presents with abdominal pain with possible appy. Patient was consulted with Dr. Baumann and stated that the patient admitted and will follow-up with hospitalist for r/o appendicitis. Patient was consulted with Dr. Gill which accepts patient. Labs obtained. Pelvic exam obtained. At time of admission, the patient does not seem toxic or ill in appearance. No acute signs of distress noted. Patient agrees to admission treatment plan of care. No further questions noted by the patient. Critical care attestation.: If time is entered above; I have spent that time in minutes in the direct care of this critically ill patient, excluding procedure time. ED Disposition Is pt being admited?: Yes
--- NOTE | 2019-03-15 08:01 | Cat Scan Report ---
EXAM: CT ABDOMEN PELVIS W CON HISTORY: abdominal pain TECHNIQUE: Spiral axial CT images are obtained through the abdomen and pelvis with the administration of oral contrast and intravenous contrast. Additional coronal and sagittal reformatted images are re constructed. COMPARISON: None available. FINDINGS: GASTROINTESTINAL TRACT: Nonspecific, fluid-filled, nondilated stomach and small bowel loops within th e abdomen and pelvis; possible gastroenteritis. Clinical correlation is advised. There are no stigma ta of bowel obstruction, colitis or diverticulitis. There is an approximately 1 cm calcification at t he apex of the cecum in keeping with an appendicolith, within the base of an otherwise normal-appeari ng (but very poorly visualized) appendix, without discernible periappendiceal inflammatory change or fluid; cannot rule out early acute appendicitis in the appropriate clinical setting. Careful clinical correlation is advised. GENITOURINARY SYSTEM: The kidneys are unremarkable. There is no ureteral calculus or stigmata of obst ructive uropathy. The urinary bladder is grossly unremarkable for a non-dedicated exam. CT ABDOMEN: The liver, spleen, pancreas, adrenal glands, gallbladder, aorta, and inferior vena cava a re within normal limits for a noncontrast CT scan. There is no intra-abdominal or retroperitoneal ly mphadenopathy, free fluid, or free air seen. No abdominal herniation is noted. CT PELVIS: There is a retroverted uterus. No gross adnexal mass lesion is seen. Small amount of free fluid within the dependent pelvis/cul-de-sac; DDX includes (but is not limited to) physiologic change and/or sequela of occult ovarian cyst leakage or rupture in the appropriate clinical setting. Clinic al correlation is advised. The visualized bony structures are within normal limits. No pelvic sidew all or inguinal lymphadenopathy is seen. No inguinal herniation is noted. No free fluid or free air is seen. LUNG BASES: The lung bases are clear. IMPRESSION: 1. Approximately 1 cm calcification at the apex of the cecum in keeping with an appendicolith, withi n the base of an otherwise normal-appearing (but very poorly visualized) appendix, without discernibl e periappendiceal inflammatory change or fluid; cannot rule out early acute appendicitis in the appro priate clinical setting. Careful clinical correlation is advised. 2. No evidence for renal stone disease or obstructive uropathy. 3. Nonspecific, fluid-filled, nondilated stomach and small bowel loops within the abdomen and pelvis ; possible gastroenteritis. Clinical correlation is advised. 4. No evidence for bowel obstruction, colitis or diverticulitis seen. 5. No free air, mass lesions, or lymphadenopathy seen. 6. Retroverted uterus. 7. Small amount of free fluid within the dependent pelvis/cul-de-sac; DDX includes (but is not limit ed to) physiologic change and/or sequela of occult ovarian cyst leakage or rupture in the appropriate clinical setting. Clinical correlation is advised. This document is electronically signed by Lisa Whalen MD., Mar 15 2019 07:58:41 AM ET
[2019-03-15 09:30] LABS: Bilirubin,Urine NEG (Negative); Blood,Urine LG (Negative); Color,Urine Yellow (Yellow); Mucus,Urine FEW /HPF; Protein,Urine <15 mg/dL mg/dL (Negative); Urobilinogen,Urine < 2.0 mg/dL (<2.0)
[2019-03-15 09:31] LABS: RBC,Urine > 182.0 /HPF (0.0-6.0)
[2019-03-15] MEDS ORDERED: REGLAN IV ONE (10:20)
[2019-03-15] MEDS ORDERED: DILAUDID IV ONE (11:56)
--- NOTE | 2019-03-15 14:11 | Cat Scan Report ---
PROCEDURE: CT ABDOMEN PELVIS WO CON TECHNIQUE: CT of the abdomen and pelvis was performed. Oral contrast was administered. No IV contrast was administered. Axial images and coronal and sagittal reformatted images were obtained. HISTORY: abd pain COMPARISON: 03/14/2019 at 6:40 AM FINDINGS: There is residual contrast material within the renal collecting systems and bladder from prior postco ntrast exam. There is been interval oral contrast administration. Within the limitations of a noncontrast exam, the visualized liver, spleen, pancreas, adrenal glands and kidneys demonstrate no significant abnormality. There is no abdominal aortic aneurysm. There is no evidence for intestinal obstruction. There is a calcification adjacent to the cecal tip which is probably an appendicolith. The appendix d istal to the appendicolith is not well seen. Grossly it does not appear significantly enlarged. But b lends in with the adjacent bowel and adnexal structures. I cannot confirm inflammation in the area. There is no free intraperitoneal air. There is no abnormal fluid collection seen. There is no abnormal pelvic mass or fluid collection seen. IMPRESSION: Again seen is an 11 mm appendicolith. The appendix distal to the appendicolith is not optimally seen but grossly not enlarged and not associated with inflammation. No other significant finding. This document is electronically signed by Erika Sellers MD., Mar 15 2019 02:09:43 PM ET
[2019-03-15] MEDS ORDERED: ZOSYN/NS 4.5GM/100ML 4.5 GM/100 ML VIAL IV ONE (14:39)
--- NOTE | 2019-03-15 16:32 | Ultrasound Report ---
PROCEDURE: US PELVIC COMPLETE, US TRANSVAGINAL TECHNIQUE: Real-time transabdominal sonography in multiple planes of the pelvis was performed. The p elvic structures, especially the ovaries, were not optimally visualized. Transvaginal sonography was then performed to better evaluate the structures and/or abnormalities described below with image docu mentation. HISTORY: abdominal/pelvic pain COMPARISONS: CT of the abdomen and pelvis performed on 03/15/2019 . FINDINGS: UTERUS Size: 8.5 x 4.2 x 5.4 cm. Endometrial thickness: 10.5 mm. Orientation: Retroflexed. Cervix: 2 nabothian cysts are visualized in the cervix. Fibroids/masses: None. RIGHT Ovary: 2.4 x 1.4 x 2.4 cm. Appearance: Normal morphology. Normal arterial and venous flow. LEFT Ovary: 2.9 x 1.7 x 2.5 cm. Appearance: Normal morphology. Normal arterial and venous flow. Pelvic fluid: None. Other: None. IMPRESSION: Normal pelvic ultrasound. This document is electronically signed by Kristen Rick MD., Mar 15 2019 04:30:02 PM ET
[2019-03-15 17:08] VITALS: BP 122/84
[2019-03-15] MEDS ORDERED: CEPHULAC PR PRN (17:23)
--- NOTE | 2019-03-15 17:23 | Event Note ---
Date: 03/15/19 Evaluated for abdominal pain No BM since yesterday Painfree for last 3 to 4 hrs Abd exam No guarding or tenderness Normal Bowel sounds Diagnosis Intestinal colic UTI Lactulosse 20 ml po qd Cipro 500 mg bid x 5 days
[2019-03-15] MEDS ORDERED: CEPHULAC PO ONE (17:36)
== END 2019-03-15 17:52 | disposition home or self-care (01) ==
LOC: ED 22:07
DX: R10.84 Generalized abdominal pain (principal); R11.2 Nausea with vomiting, unspecified; F17.200 Nicotine dependence, unspecified, uncomplicated; Z79.899 Other long term (current) drug therapy
CPT/HCPCS: 36415; 74177; 76830; 76856; 80053; 81001; 83690; 84703; 85007; 85025; 87086; 87210; 87591; 96365; 96375; 96376; 99285; J1170; J1885; J2270; J2405; J2543; J2765; J7030; Q9967; Q9963

== ENCOUNTER 2019-03-16 13:41 | Emergency (ER) | payer SELFPAY | END 2019-03-16 14:29 | disposition left against medical advice (07) | LOC: ED 13:41 | DX: R10.9 Unspecified abdominal pain (principal); Z53.21 Procedure and treatment not carried out due to patient leaving prior to being seen by health care provider ==

== ENCOUNTER 2019-03-20 15:06 | Inpatient (IN) | payer MEDICAID ==
--- NOTE | 2019-03-20 15:39 | Emergency Department Report ---
Blank Doc - Documentation Documentation: pt presents with right lower abd pain that began a few days ago +right sided back pain was evaluated in the ED for appendicitis, had two CT scans and was discharged home +N/V states that it hurts and is difficult to have a BM no PMHx +marijuana non drinker no tobacco use
[2019-03-20 16:17] LABS: Hematocrit 30.7 % (30.3-42.9); Hemoglobin 9.4 gm/dl (10.1-14.3); Mean Corpuscular HGB Conc 31 % (30-34); Mean Corpuscular Volume 70 fl (79-97); Platelet Count 303 K/mm3 (140-440); Red Blood Count 4.36 M/mm3 (3.65-5.03); Red Cell Distribution Width 19.1 % (13.2-15.2)
[2019-03-20 16:30] LABS: Alanine Aminotransferase 17 units/L (7-56); BUN/Creatinine Ratio 11; Blood Urea Nitrogen 8 mg/dL (7-17); Calcium 8.8 mg/dL (8.4-10.2); Hemolysis Index 0
[2019-03-20 17:25] LABS: Total Cells Counted 100
[2019-03-20 17:26] LABS: Hypochromasia 2+; Ovalocytes 1+; Poikilocytosis Few
[2019-03-20 17:27] LABS: Bacteria,Urine 1+ /HPF (Negative); Bilirubin,Urine NEG (Negative); Blood,Urine NEG (Negative); Color,Urine Yellow (Yellow); Hyaline Casts,Urine 1 /LPF; Mucus,Urine 1+ /HPF; Protein,Urine <15 mg/dL mg/dL (Negative); Urobilinogen,Urine < 2.0 mg/dL (<2.0)
[2019-03-20 17:27] LABS: Large Platelets Few; Platelet Estimate Consistent w Auto
[2019-03-20 17:35] LABS: HCG Qualitative,Urine Negative (Negative)
--- NOTE | 2019-03-20 18:06 | History and Physical Report ---
History of Present Illness Chief complaint: My stomach hurts History of present illness: 28 YO Female with No PMH presents to ED for evaluation. Pt states that she has experienced abdominal pain over the past 5 days with persistent symptoms over the same time frame as well as worsening symptoms over the past 1 day. Pt states that her pain is 7-9/10, constant, not worsened with exertion, not relieved with rest, associated with nausea and multiple episodes of vomiting. Pt denies fever, chills, CP, Palpitations, Syncope, BRBPR, Unintentional weight loss, night sweats. Pt transported to [facility] via private vehicle. Pt seen and evaluated in ED and found to have Appendicitis. Surgery team consulted in ED. Pt initiated on IV antibiotic therapy and admitted to Surgical floor. No prior admission for review. No medication listed at time of admission for reconciliation. Past History Past Medical History: No medical history, other (reviewed) Past Surgical History: No surgical history, Other (reviewed) Social history: single. denies: smoking, alcohol abuse, prescription drug abuse Family history: no significant family history (reviewed) Medications and Allergies Allergies Allergy/AdvReac Type Severity Reaction Status Date / Time No Known Allergies Allergy Verified 02/10/16 11:03 Home Medications Medication Instructions Recorded Confirmed Last Taken Type Fluconazole [Diflucan TAB] 150 mg PO QDAY 3 Days #3 tablet 03/24/18 Unknown Rx Nystatin Oint [Mycostatin Oint] 1 applicatio TP BID 7 Days #1 tube 03/24/18 Unknown Rx cephALEXin [Keflex] 500 mg PO Q8HR 5 Days #15 cap 03/24/18 Unknown Rx Ciprofloxacin HCl [Ciprofloxacin 500 mg PO Q12H #14 tab 01/26/19 Unknown Rx TAB] Fluconazole [Diflucan TAB] 100 mg PO BID #10 tablet 01/26/19 Unknown Rx Ciprofloxacin HCl [Cipro] 500 mg PO BID #10 tablet 03/15/19 Unknown Rx Review of Systems Constitutional: no weight loss, no weight gain, no fever, no chills Ears, nose, mouth and throat: no ear pain, no ear discharge, no tinnitis, no decreased hearing, no nose pain Breasts: no change in shape, no swelling, no mass Cardiovascular: no chest pain, no orthopnea, no palpitations, no rapid/irregular heart beat, no edema Respiratory: no cough, no cough with sputum, no excessive sputum, no hemoptysis Gastrointestinal: abdominal pain, nausea, vomiting, loss of appetite, no const ipation, no melena, no hematochezia Genitourinary Female: no pelvic pain, no flank pain, no menorrhagia, no dysuria, no urinary frequency, no urgency Rectal: no pain, no incontinence, no bleeding Musculoskeletal: no neck stiffness, no neck pain, no shooting arm pain, no arm numbness/tingling, no low back pain, no shooting leg pain, no leg numbness/tingling Integumentary: no rash, no pruritis, no redness, no sores, no wounds, no jaundice Neurological: no head injury, no transient paralysis, no paralysis, no weakness, no numbness, no tingling, no seizures, no syncope Psychiatric: no anxiety, no memory loss, no change in sleep habits, no sleep d isturbances, no insomnia, no hypersomnia, no change in libido, no disorientation Endocrine: no cold intolerance, no heat intolerance, no polyphagia, no excessive thirst, no polydipsia, no polyuria, no nocturia Hematologic/Lymphatic: no easy bruising, no easy bleeding, no lymphadenopathy, no lymphedema Allergic/Immunologic: no urticaria, no allergic rhinitis, no wheezing, no persistent infections, no anaphylaxis Exam - Constitutional Vitals: Temp Pulse Resp BP Pulse Ox 98.5 F 98 H 134/68 03/20/19 15:35 03/20/19 15:35 03/20/19 15:35 General appearance: Present: mild distress - EENT Eyes: Present: PERRL ENT: hearing intact, clear oral mucosa - Neck Neck: Present: supple, normal ROM - Respiratory Respiratory effort: normal Respiratory: bilateral: CTA - Cardiovascular Heart Sounds: Present: S1 & S2. Absent: rub, click - Extremities Extremities: pulses symmetrical, No edema Peripheral Pulses: within normal limits - Abdominal General gastrointestinal: Present: soft, tender, non-distended, normal bowel sounds. Absent: hypoactive bowel sounds Female genitourinary: Present: normal - Integumentary Integumentary: Present: clear, warm, dry - Musculoskeletal Musculoskeletal: gait normal, strength equal bilaterally - Psychiatric Psychiatric: appropriate mood/affect, intact judgment & insight - Neurologic Neurologic: CNII-XII intact, moves all extremities Results - Labs CBC & Chem 7: 03/20/19 15:50 03/20/19 15:50 Labs: Abnormal lab results 03/20/19 Range/Units 15:50 WBC 3.5 L (4.5-11.0) K/mm3 Hgb 9.4 L (10.1-14.3) gm/dl MCV 70 L (79-97) fl MCH 22 L (28-32) pg RDW 19.1 H (13.2-15.2) % Lymphocytes % (Manual) 39.0 H (13.4-35.0) % Monocytes % (Manual) 10.0 H (0.0-7.3) % Basophils % (Manual) 2.0 H (0.0-1.8) % Seg Neutrophils # Man 1.6 L (1.8-7.7) K/mm3 Assessment and Plan - Patient Problems (1) Acute appendicitis Current Visit: Yes Status: Acute Qualifiers: Appendicitis abscess presence: with abscess Plan to address problem: IV antibiotic therapy, pain control, bowel rest, IVF resuscitation therapy, CBC, CMP, urinalysis, Surgery consulted in ED (2) Abdominal pain Current Visit: No Status: Acute Qualifiers: Abdominal location: generalized Qualified Code(s): R10.84 - Generalized abdominal pain Plan to address problem: Serial abdominal exam, supportive care. (3) DVT prophylaxis Current Visit: Yes Status: Acute Plan to address problem: SCD to BLE while in bed. Prophylactic lovenox
[2019-03-20] MEDS ORDERED: ZOFRAN IV PRN ×2 (18:07→21:58)
[2019-03-20] MEDS ORDERED: SODIUM CHLORIDE FLUSH SYRINGE 10 ML IV PRN (18:07)
[2019-03-20] MEDS ORDERED: TYLENOL PO PRN (18:07)
--- NOTE | 2019-03-20 18:07 | Emergency Department Report ---
ED Abdominal Pain HPI - General Chief Complaint: Abdominal Pain Stated Complaint: NEED APPENDIX REMOVED/PAIN Time Seen by Provider: 03/20/19 15:35 Source: patient Mode of arrival: Ambulatory Limitations: No Limitations - History of Present Illness Initial Comments: Patient is a 28-year-old medical female who is presenting with right lower quadrant pain. Patient was here 5 days ago for some discomfort in abdomen. At that time she had a CT done with and without contrast which showed that she had an 11 mm appendicolith with no periappendiceal inflammation. Patient states he was discharged home. After being discharged patient states her pain has s teadily worsened. Patient states the pain currently is 8 out of 10 in severity. Patient's has a decreased appetite and has not eaten or wanted to eat in the last 24 hours. Patient denies fever but has had some nausea and vomiting. Patient states she has not had this pain before. Patient denies any dysuria vaginal bleeding vaginal discharge. Patient had a pelvic ultrasound done 5 days ago which was within normal limits. Radiation: back Quality: aching Consistency: constant Improves With: nothing Worsens With: nothing - Related Data Previous Rx's Medication Instructions Recorded Last Taken Type Fluconazole [Diflucan TAB] 150 mg PO QDAY 3 Days #3 tablet 03/24/18 Unknown Rx Nystatin Oint [Mycostatin Oint] 1 applicatio TP BID 7 Days #1 tube 03/24/18 Unknown Rx cephALEXin [Keflex] 500 mg PO Q8HR 5 Days #15 cap 03/24/18 Unknown Rx Ciprofloxacin HCl [Ciprofloxacin 500 mg PO Q12H #14 tab 01/26/19 Unknown Rx TAB] Fluconazole [Diflucan TAB] 100 mg PO BID #10 tablet 01/26/19 Unknown Rx Ciprofloxacin HCl [Cipro] 500 mg PO BID #10 tablet 03/15/19 Unknown Rx Allergies Allergy/AdvReac Type Severity Reaction Status Date / Time No Known Allergies Allergy Verified 02/10/16 11:03 ED Review of Systems ROS: Stated complaint: NEED APPENDIX REMOVED/PAIN Other details as noted in HPI Comment: All other systems reviewed and negative ED Past Medical Hx - Past Medical History Hx Hypertension: No Hx Congestive Heart Failure: No Hx Diabetes: No Hx Deep Vein Thrombosis: No Hx Renal Disease: No Hx Sickle Cell Disease: No Hx Seizures: No Hx Asthma: No Hx COPD: No Hx HIV: No Additional medical history: Vaginal yeast infection. Bacterial vaginosis. Abnormal menses - Social History Smoking Status: Never Smoker Substance Use Type: Marijuana - Medications Home Medications: Home Medications Medication Instructions Recorded Confirmed Last Taken Type Fluconazole [Diflucan TAB] 150 mg PO QDAY 3 Days #3 tablet 03/24/18 Unknown Rx Nystatin Oint [Mycostatin Oint] 1 applicatio TP BID 7 Days #1 tube 03/24/18 Unknown Rx cephALEXin [Keflex] 500 mg PO Q8HR 5 Days #15 cap 03/24/18 Unknown Rx Ciprofloxacin HCl [Ciprofloxacin 500 mg PO Q12H #14 tab 01/26/19 Unknown Rx TAB] Fluconazole [Diflucan TAB] 100 mg PO BID #10 tablet 01/26/19 Unknown Rx Ciprofloxacin HCl [Cipro] 500 mg PO BID #10 tablet 03/15/19 Unknown Rx ED Physical Exam - General Limitations: No Limitations General appearance: alert, in no apparent distress - Head Head exam: Present: atraumatic, normocephalic - Eye Eye exam: Present: normal appearance, PERRL, EOMI - ENT ENT exam: Present: mucous membranes moist - Neck Neck exam: Present: normal inspection - Respiratory Respiratory exam: Present: normal lung sounds bilaterally. Absent: respiratory distress, wheezes, rales, rhonchi - Cardiovascular Cardiovascular Exam: Present: regular rate, normal rhythm, normal heart sounds. Absent: systolic murmur, diastolic murmur, rubs, gallop - GI/Abdominal GI/Abdominal exam: Present: soft, tenderness (right lower quadrant), rebound (right lower quadrant), normal bowel sounds. Absent: distended, guarding, rigid - Extremities Exam Extremities exam: Present: normal inspection - Back Exam Back exam: Present: normal inspection - Neurological Exam Neurological exam: Present: alert, oriented X3 - Psychiatric Psychiatric exam: Present: normal affect, normal mood - Skin Skin exam: Present: warm, dry, intact, normal color. Absent: rash ED Course Vital Signs 03/20/19 15:35 Temperature 98.5 F Pulse Rate 98 H Blood Pressure 134/68 ED Medical Decision Making - Lab Data Result diagrams: 03/20/19 15:50 03/20/19 15:50 Lab Results 03/20/19 03/20/19 03/20/19 Range/Units 15:50 15:50 16:46 WBC 3.5 L (4.5-11.0) K/mm3 RBC 4.36 (3.65-5.03) M/mm3 Hgb 9.4 L (10.1-14.3) gm/dl Hct 30.7 (30.3-42.9) % MCV 70 L (79-97) fl MCH 22 L (28-32) pg MCHC 31 (30-34) % RDW 19.1 H (13.2-15.2) % Plt Count 303 (140-440) K/mm3 [place] % (Auto) [employer] Add Manual Diff Complete Total Counted 100 Seg Neuts % (Manual) 46.0 (40.0-70.0) % Band Neutrophils % 1.0 % Lymphocytes % (Manual) 39.0 H (13.4-35.0) % Reactive Lymphs % (Man) 1.0 % Monocytes % (Manual) 10.0 H (0.0-7.3) % Eosinophils % (Manual) 1.0 (0.0-4.3) % Basophils % (Manual) 2.0 H (0.0-1.8) % Metamyelocytes % 0 % Myelocytes % 0 % Promyelocytes % 0 % Blast Cells % 0 % Nucleated RBC % Not Reportable Seg Neutrophils # Man 1.6 L (1.8-7.7) K/mm3 Band Neutrophils # 0.0 K/mm3 Lymphocytes # (Manual) 1.4 (1.2-5.4) K/mm3 Abs React Lymphs (Man) 0.0 K/mm3 Monocytes # (Manual) 0.4 (0.0-0.8) K/mm3 Eosinophils # (Manual) 0.0 (0.0-0.4) K/mm3 Basophils # (Manual) 0.1 (0.0-0.1) K/mm3 Metamyelocytes # 0.0 K/mm3 Myelocytes # 0.0 K/mm3 Promyelocytes # 0.0 K/mm3 Blast Cells # 0.0 K/mm3 WBC Morphology Not Reportable Hypersegmented Neuts Not Reportable Hyposegmented Neuts Not Reportable Hypogranular Neuts Not Reportable Smudge Cells Not Reportable Toxic Granulation Not Reportable Toxic Vacuolation Not Reportable Dohle Bodies Not Reportable Pelger-Huet Anomaly Not Reportable Ca Rods Not Reportable Platelet Estimate Consistent w auto Clumped Platelets Not Reportable Plt Clumps, EDTA Not Reportable Large Platelets Few Giant Platelets Not Reportable Platelet Satelliting Not Reportable Plt Morphology Comment Not Reportable RBC Morphology Not Reportable Dimorphic RBCs Not Reportable Polychromasia Not Reportable Hypochromasia 2+ Poikilocytosis Few Anisocytosis Not Reportable Microcytosis 1+ Macrocytosis Not Reportable Spherocytes Not Reportable Pappenheimer Bodies Not Reportable Sickle Cells Not Reportable Target Cells Not Reportable Tear Drop Cells Not Reportable Ovalocytes 1+ Helmet Cells Not Reportable Bar-[place] Bodies Not Reportable [place] Rings Not Reportable Nyla Cells Not Reportable Bite Cells Not Reportable Crenated Cell Not Reportable Elliptocytes Not Reportable Acanthocytes (Spur) Not Reportable Rouleaux Not Reportable Hemoglobin C Crystals Not Reportable Schistocytes Not Reportable Malaria parasites Not Reportable Bobby Bodies Not Reportable Hem Pathologist Commnt No Sodium 139 (137-145) mmol/L Potassium 4.1 (3.6-5.0) mmol/L Chloride 102.0 (98-107) mmol/L Carbon Dioxide 25 (22-30) mmol/L Anion Gap 16 mmol/L BUN 8 (7-17) mg/dL Creatinine 0.7 (0.7-1.2) mg/dL Estimated GFR > 60 ml/min BUN/Creatinine Ratio 11 % Glucose 76 (65-100) mg/dL Calcium 8.8 (8.4-10.2) mg/dL Total Bilirubin 0.20 (0.1-1.2) mg/dL AST 20 (5-40) units/L ALT 17 (7-56) units/L Alkaline Phosphatase 74 (35-129) units/L Total Protein 7.3 (6.3-8.2) g/dL Albumin 4.0 (3.9-5) g/dL Albumin/Globulin Ratio 1.2 % Lipase 54 (13-60) units/L Urine Color Yellow (Yellow) Urine Turbidity Slightly-cloudy (Clear) Urine pH 6.0 (5.0-7.0) Ur Specific [place] 1.023 (1.003-1.030) Urine Protein <15 mg/dl (Negative) mg/dL Urine Glucose (UA) Neg (Negative) mg/dL Urine Ketones Tr (Negative) mg/dL Urine Blood Neg (Negative) Urine Nitrite Neg (Negative) Urine Bilirubin Neg (Negative) Urine Urobilinogen < 2.0 (<2.0) mg/dL Ur Leukocyte Esterase Tr (Negative) Urine WBC (Auto) 3.0 (0.0-6.0) /HPF Urine RBC (Auto) 4.0 (0.0-6.0) /HPF U Epithel Cells (Auto) 8.0 (0-13.0) /HPF Urine Bacteria (Auto) 1+ (Negative) /HPF Hyaline Casts 1 /LPF Urine Mucus 1+ /HPF Urine HCG, Qual Negative (Negative) - Medical Decision Making Spoke with Dr. Gonzalez with surgery. The fact that the patient has had no fever and does not have increased white count he states that we can not really image the patient. We both do agree that the patient sounds as though she now has acute appendicitis at least clinically. Patient to be admitted to the hospitalist service under Dr. Dimas at this time. Patient is made nothing by mouth and given doses Zosyn as well as pain control. Critical care attestation.: If time is entered above; I have spent that time in minutes in the direct care of this critically ill patient, excluding procedure time. ED Disposition Clinical Impression: Acute appendicitis Disposition: OP ADMIT IP TO THIS HOSP Is pt being admited?: Yes Does the pt Need Aspirin: No Condition: Stable Instructions: Abdominal Pain (ED) Referrals: DOROTHY LEE MD [Primary Care Provider] - 3-5 Days Time of Disposition: 18:07
[2019-03-20] MEDS ORDERED: NACL 0.9% 1000 ML 1,000 ML IV ONE (18:08)
[2019-03-20] MEDS ORDERED: TORADOL IV ONE (18:08)
[2019-03-20] MEDS ORDERED: ZOFRAN IV ONE (18:08)
[2019-03-20] MEDS ORDERED: MORPHINE IV ONE (18:08)
[2019-03-20] MEDS ORDERED: ZOSYN/NS 4.5GM/100ML 4.5 GM/100 ML VIAL IV ONE (18:08)
--- NOTE | 2019-03-20 19:49 | Consultation ---
History of Present Illness Consult date: 03/20/19 Reason for consult: abdominal pain Requesting physician: JACOB MEDEROS Chief complaint: RLQ pain - History of present illness History of present illness: 28 F otherwise healthy presents with significant, constant right lower quadrant and right flank pain. She reports that it originally woke her up at about 3 AM on Saturday morning. She came on the for evaluation. CT scan at that time did show the appendicolith. However she was ultimately sent home with antibiotics. It did not help. She returned because the pain has not gotten any better. She has nausea, vomiting, decreased appetite. No fevers or chills. No radiation of pain. Past History Past Medical History: No medical history, other (reviewed) Past Surgical History: No surgical history, Other (reviewed) Social history: single, other (marijuana). denies: smoking, alcohol abuse, prescription drug abuse Family history: no significant family history (reviewed) Medications and Allergies Allergies Allergy/AdvReac Type Severity Reaction Status Date / Time No Known Allergies Allergy Verified 02/10/16 11:03 Home Medications Medication Instructions Recorded Confirmed Last Taken Type Fluconazole [Diflucan TAB] 150 mg PO QDAY 3 Days #3 tablet 03/24/18 Unknown Rx Nystatin Oint [Mycostatin Oint] 1 applicatio TP BID 7 Days #1 tube 03/24/18 Unknown Rx cephALEXin [Keflex] 500 mg PO Q8HR 5 Days #15 cap 03/24/18 Unknown Rx Ciprofloxacin HCl [Ciprofloxacin 500 mg PO Q12H #14 tab 01/26/19 Unknown Rx TAB] Fluconazole [Diflucan TAB] 100 mg PO BID #10 tablet 01/26/19 Unknown Rx Ciprofloxacin HCl [Cipro] 500 mg PO BID #10 tablet 03/15/19 Unknown Rx Active Meds: Active Medications Acetaminophen (Tylenol) 650 mg PO Q4H PRN PRN Reason: Pain MILD(1-3)/Fever >100.5/CHACKO Enoxaparin Sodium (Lovenox) 40 mg SUB-Q QDAY@2200 GUERA Sodium Chloride (Nacl 0.45% 1000 Ml) 1,000 mls @ 100 mls/hr IV DIRECT GUERA Cefepime HCl (Maxipime/Ns 2 Gm/100 Ml) 2 gm in 100 mls @ 200 mls/hr IV Q8HR GUERA; Protocol Metronidazole (Flagyl 500 Mg/100 Ml) 500 mg in 100 mls @ 100 mls/hr IV Q8HR GUERA; Protocol Morphine Sulfate (Morphine) 2 mg IV Q4H PRN PRN Reason: Pain, Moderate (4-6) Ondansetron HCl (Zofran) 4 mg IV Q8H PRN PRN Reason: Nausea And Vomiting Sodium Chloride (Sodium Chloride Flush Syringe 10 Ml) 10 ml IV BID GUERA Sodium Chloride (Sodium Chloride Flush Syringe 10 Ml) 10 ml IV PRN PRN PRN Reason: LINE FLUSH Review of Systems - Constitutional no fever, no chills, no chronic pain - Cardiovascular no chest pain, no shortness of breath - Respiratory no cough - Gastrointestinal abdominal pain, nausea, vomiting, constipation, change in bowel habits, loss of appetite, no hematemesis, no coffee ground emesis, no BRBPR, no melena, no hematochezia, no dyspepsia/bloating - Genitourinary Genitourinary: flank pain, no dysuria - Muskuloskeletal no low back pain Exam Vital Signs Temp Pulse BP 98.5 F 98 H 134/68 03/20/19 15:35 03/20/19 15:35 03/20/19 15:35 - General physical appearance Positive: no distress, no pain, other (healthy appearing young lady) - Eyes Positive: normal occular movement - Respiratory Positive: normal expansion, normal respiratory effort, clear to auscultation - Cardiovascular Rhythm: regular - Abdomen Abdomen: Present: soft, tender (in RLQ), bowel sounds hypoactive. Absent: distended, guarding, rigid, wound, surgical scars Hernia: none - Integumentary no rash, no growths, no abnormal pigmentation - Neurologic Neurologic: alert and oriented to time, place and person, motor strength and sensation are grossly intact - Psychiatric Psychiatric: appropriate mood/affect, intact judgment & insight Results - Labs 03/20/19 15:50 03/20/19 15:50 Abnormal lab results 03/20/19 Range/Units 15:50 WBC 3.5 L (4.5-11.0) K/mm3 Hgb 9.4 L (10.1-14.3) gm/dl MCV 70 L (79-97) fl MCH 22 L (28-32) pg RDW 19.1 H (13.2-15.2) % Lymphocytes % (Manual) 39.0 H (13.4-35.0) % Monocytes % (Manual) 10.0 H (0.0-7.3) % Basophils % (Manual) 2.0 H (0.0-1.8) % Seg Neutrophils # Man 1.6 L (1.8-7.7) K/mm3 Diabetes panel 03/20/19 Range/Units 15:50 Sodium 139 (137-145) mmol/L Potassium 4.1 (3.6-5.0) mmol/L Chloride 102.0 (98-107) mmol/L Carbon Dioxide 25 (22-30) mmol/L BUN 8 (7-17) mg/dL Creatinine 0.7 (0.7-1.2) mg/dL Glucose 76 (65-100) mg/dL Calcium 8.8 (8.4-10.2) mg/dL AST 20 (5-40) units/L ALT 17 (7-56) units/L Alkaline Phosphatase 74 (35-129) units/L Total Protein 7.3 (6.3-8.2) g/dL Albumin 4.0 (3.9-5) g/dL Calcium panel 03/20/19 Range/Units 15:50 Calcium 8.8 (8.4-10.2) mg/dL Albumin 4.0 (3.9-5) g/dL Pituitary panel 03/20/19 Range/Units 15:50 Sodium 139 (137-145) mmol/L Potassium 4.1 (3.6-5.0) mmol/L Chloride 102.0 (98-107) mmol/L Carbon Dioxide 25 (22-30) mmol/L BUN 8 (7-17) mg/dL Creatinine 0.7 (0.7-1.2) mg/dL Glucose 76 (65-100) mg/dL Calcium 8.8 (8.4-10.2) mg/dL Adrenal panel 03/20/19 Range/Units 15:50 Sodium 139 (137-145) mmol/L Potassium 4.1 (3.6-5.0) mmol/L Chloride 102.0 (98-107) mmol/L Carbon Dioxide 25 (22-30) mmol/L BUN 8 (7-17) mg/dL Creatinine 0.7 (0.7-1.2) mg/dL Glucose 76 (65-100) mg/dL Calcium 8.8 (8.4-10.2) mg/dL Total Bilirubin 0.20 (0.1-1.2) mg/dL AST 20 (5-40) units/L ALT 17 (7-56) units/L Alkaline Phosphatase 74 (35-129) units/L Total Protein 7.3 (6.3-8.2) g/dL Albumin 4.0 (3.9-5) g/dL - Imaging CT scan - abdomen: report reviewed, image reviewed CT scan - pelvis: report reviewed, image reviewed Assessment and Plan - Patient Problems (1) Abdominal pain Current Visit: No Status: Acute Qualifiers: Abdominal location: generalized Qualified Code(s): R10.84 - Generalized abdominal pain Plan to address problem: Pt stable. Her overall picture appears to be consistent with obstruction of the appendix with an appendicolith. I don't believe that she has appendicitis. However, the blockage can cause significant pain. I think she would benefit from a laparoscopic appendectomy. Procedure, risks, benefits were discussed. All questions were answered. Consent was obtained. Will proceed to OR tonight. Time=45min
[2019-03-20] MEDS ORDERED: NACL 0.9% 1000 ML 1,000 ML ONE ×2 (20:29→21:50)
[2019-03-20] MEDS ORDERED: NEURONTIN ONE (20:38)
[2019-03-20] MEDS ORDERED: TYLENOL ONE (20:38)
[2019-03-20] MEDS ORDERED: VERSED ONE (20:39)
[2019-03-20] MEDS ORDERED: PEPCID IV ONE (20:39)
[2019-03-20] MEDS ORDERED: QUELICIN ONE (20:50)
[2019-03-20] MEDS ORDERED: DILAUDID ONE (20:50)
[2019-03-20] MEDS ORDERED: ZEMURON IV ONE (20:50)
[2019-03-20] MEDS ORDERED: DIPRIVAN 10 MG/ML IV ONE (20:50)
[2019-03-20] MEDS ORDERED: MARCAINE-EPI 0.5%-1:200,000 INFILTRATI ONE (20:52)
[2019-03-20] MEDS ORDERED: NACL 0.9% IR ONE (20:52)
[2019-03-20] MEDS ORDERED: XYLOCAINE 1% 20 mL INFILTRATI ONE (20:52)
--- NOTE | 2019-03-20 20:52 | Anesthesia Day of Surgery ---
Anesthesia Day of Surgery - Day of Surgery Patient Examined: Yes Patient H&P Reviewed: Yes Patient is NPO: No (15:30 (shrimp/crawfish)) Beta Blockers: Yes Cardiac Clearance: Yes Pulmonary Clearance: Yes Rashid's Test: N/A
--- NOTE | 2019-03-20 20:53 | Anesthesia Consultation ---
Anesthesia Consult and Med Hx Date of service: 03/20/19 - Airway Anesthetic Teeth Evaluation: Good ROM Head & Neck: Adequate Mental/Hyoid Distance: Adequate Mallampati Class: Class I Intubation Access Assessment: Good - Pulmonary Exam CTA: Yes - Cardiac Exam Cardiac Exam: RRR - Pre-Operative Health Status ASA Pre-Surgery Classification: ASA1 Proposed Anesthetic Plan: General - Pulmonary Hx Asthma: No COPD: No Hx Pneumonia: No - Cardiovascular System Hx Hypertension: No - Central Nervous System Hx Seizures: No Hx Psychiatric Problems: No - Endocrine Hx Renal Disease: No Hx End Stage Renal Disease: No Hx Hypothyroidism: No Hx Hyperthyroidism: No - Hematic Hx Anemia: No Hx Sickle Cell Disease: No - Other Systems Hx Alcohol Use: No - Additional Comments Anesthesia Medical History Comments: multimodal analgesia
[2019-03-20] MEDS ORDERED: ANCEF/STERILE WATER 2 GM/20 ML 2 GM/20 ML SYRINGE IV ONE (20:57)
[2019-03-20] MEDS ORDERED: XYLOCAINE 1% 20 mL ONE (21:06)
[2019-03-20] MEDS ORDERED: MARCAINE-EPI 0.25%-1:200,000 INFILTRATI ONE (21:07)
[2019-03-20] MEDS ORDERED: ROBINUL ONE (21:39)
[2019-03-20] MEDS ORDERED: ZOFRAN ONE (21:39)
[2019-03-20] MEDS ORDERED: XYLOCAINE MPF 2% ONE (21:39)
[2019-03-20] MEDS ORDERED: BLOXIVERZ ONE (21:39)
[2019-03-20] MEDS ORDERED: TORADOL ONE (21:51)
--- NOTE | 2019-03-20 21:57 | Post Operative Note ---
Date of procedure: 03/20/19 (Dictation:[id number]) Pre-op diagnosis: appendicolith; RLQ pain Post-op diagnosis: same Findings: firm mass at proximal portion of appendix Procedure: lap appy IVF - 900cc min EBL Anesthesia: GETA Surgeon: BRITTANY HERNANDEZ Estimated blood loss: minimal Pathology: list (appendix) Specimen disposition: to lab Condition: stable Disposition: PACU
[2019-03-20] MEDS ORDERED: DILAUDID IV PRN (21:58)
[2019-03-20] MEDS ORDERED: NARCAN 0.4 MG/1 ML IV PRN (21:58)
[2019-03-20] MEDS ORDERED: NORCO 5/325 PO PRN (21:58)
[2019-03-20] MEDS ORDERED: SUBLIMAZE IV PRN (21:58)
[2019-03-20] MEDS ORDERED: REGLAN IV PRN (21:58)
[2019-03-20] MEDS ORDERED: FLAGYL 500 MG/100 ML 500 MG/100 ML BAG IV SCH (22:00)
[2019-03-20] MEDS ORDERED: MAXIPIME/NS 2 GM/100 ML 2 GM/100 ML BAG IV SCH (22:00)
--- NOTE | 2019-03-20 22:10 | Operative Report ---
PREOPERATIVE DIAGNOSES: 1. Right lower quadrant pain. 2. Appendicolith. POSTOPERATIVE DIAGNOSES: 1. Right lower quadrant pain. 2. Appendicolith. PROCEDURE: Laparoscopic appendectomy. ATTENDING PHYSICIAN: Reid Gonzalez MD ANESTHESIA: General. ESTIMATED BLOOD LOSS: Minimal. FLUIDS: 900 mL. FINDINGS: Normal-appearing appendix, except for a firm mass at its proximal end. Mild adhesions were noted in the ascending colon that were not causing any compromise to the colon itself. Rest of the abdomen was normal. SPECIMENS: Appendix. DRAINS: None. COMPLICATIONS: None. DISPOSITION: Stable, transferred to Recovery Room. INDICATIONS: This is a 28-year-old female, who woke up with sudden onset of pain at 03:00 a.m. on Saturday. She came to the Emergency Room on 03/15/2019 for evaluation and found to have appendicolith, but no other signs consistent with appendicitis. The patient was sent home with antibiotics. The patient returns with persistent pain that has gotten more intense today. The patient was assessed need for appendectomy. Procedure, risks, benefits were explained to the patient. Risks included but were not limited to infection, bleeding, pain, injury to surrounding structures, possible need for further procedures in the future. The patient understood and consented. OPERATIVE NOTE: The patient was brought to the operating room and placed on the table in supine position. After adequate general anesthesia was established, the patient was prepped and draped in the usual sterile fashion. Two grams of Ancef had been administered prior to the start of the case. SCDs were in place. Time-out was called. I began by placing a Veress needle in the left upper quadrant. I was able to insufflate in the first attempt. A 5 mm port was placed in the left lower quadrant. Using the Optiview technique, I entered the peritoneal cavity safely. I examined the area where the Veress needle had been inserted. There was no injury to the underlying structures. We then replaced that with a 5 mm port and placed under direct vision. We placed a 12 mm port at the inferior aspect of the umbilicus. We isolated the appendix, divided the mesoappendix with the LigaSure device and then divided the base of the appendix and taking a small amount of cecum to make sure that we got the obstruction. We divided this with the laparoscopic stapler using a blue load. We did have some very minimal bleeding along the staple line on either end. Compression for a minute stopped the bleeding. As a precaution, I did place Surgicel over that area. We cleaned out the area with a Ray-Ryan. Everything was hemostatic. There was no leakage of any contents from the colon. Everything looked very good. We then placed the specimen in the EndoCatch bag, removed it from the umbilical port site. We removed the Ray-Ryan. The other ports were removed under direct vision, we desufflated the abdomen. Additional local was injected into all the sites. A 0 Vicryl was used to close the umbilical fascia with a [id number] stitch. Skin sites were closed with 4-0 Monocryl subcuticular stitches. Skin was cleaned and dried. Dermabond was placed. The patient tolerated the procedure well. There were no complications. All counts were correct at the end of the case. JOB# [id number] DORIAN/NEFTALI
[2019-03-20] MEDS: TORADOL IV SCH (23:55)
[2019-03-20] MEDS: NACL 0.45% 1000 ML 1,000 ML IV SCH (23:59)
[2019-03-21] MEDS: MORPHINE IV PRN ×2 (02:10→11:57)
[2019-03-21] MEDS: SODIUM CHLORIDE FLUSH SYRINGE 10 ML IV SCH ×2 (02:12→11:20)
[2019-03-21 05:22] LABS: Alanine Aminotransferase 23 units/L (7-56); Albumin 3.5 g/dL (3.9-5); BUN/Creatinine Ratio 13; Blood Urea Nitrogen 10 mg/dL (7-17); Calcium 8.5 mg/dL (8.4-10.2); Hemolysis Index 0
[2019-03-21] MEDS: TORADOL IV SCH ×2 (06:10→11:16)
[2019-03-21 06:49] LABS: Basophils % (Auto) 1.1 % (0.0-1.8); Eosinophils % (Auto) 0.7 % (0.0-4.3); Hematocrit 31.3 % (30.3-42.9); Hemoglobin 9.5 gm/dl (10.1-14.3); Lymphocytes # (Auto) 1.7 K/mm3 (1.2-5.4); Lymphocytes % (Auto) 36.4 % (13.4-35.0); Mean Corpuscular HGB Conc 30 % (30-34); Mean Corpuscular Volume 71 fl (79-97); Monocytes # (Auto) 0.6 K/mm3 (0.0-0.8); Monocytes % (Auto) 13.1 % (0.0-7.3); Platelet Count 287 K/mm3 (140-440); Red Blood Count 4.41 M/mm3 (3.65-5.03); Red Cell Distribution Width 18.9 % (13.2-15.2)
--- NOTE | 2019-03-21 09:51 | Discharge Summary ---
Providers - Providers Date of Admission: 03/20/19 18:07 Attending physician: ALAN OLSEN MD Primary care physician: [facility] MD [place] Hospitalization Condition: Stable Hospital course: 29 year old woman who presented to the emergency room with abdominal pain x 5 days.She was found to have acute appendicitis, she underwent appendectomy. She improved and was subsequently discharged Diagnosis Acute appendicitis Disposition: DC- TO HOME OR SELFCARE Time spent for discharge: 33 mins Core Measure Documentation - Palliative Care Palliative Care/ Comfort Measures: Not Applicable - Core Measures Any of the following diagnoses?: none Exam - Constitutional Vitals: Temp Pulse Resp BP Pulse Ox 97.7 F 66 18 130/77 95 03/21/19 07:12 03/21/19 07:12 03/21/19 07:12 03/21/19 07:12 03/21/19 07:42 General appearance: Present: no acute distress, well-nourished - EENT Eyes: Present: PERRL ENT: hearing intact, clear oral mucosa - Neck Neck: Present: supple, normal ROM - Respiratory Respiratory effort: normal Respiratory: bilateral: CTA - Cardiovascular Heart Sounds: Present: S1 & S2. Absent: rub, click - Extremities Extremities: pulses symmetrical, No edema Peripheral Pulses: within normal limits - Abdominal General gastrointestinal: Present: soft, non-tender, non-distended, normal bowel sounds Female genitourinary: Present: normal - Integumentary Integumentary: Present: clear, warm, dry - Musculoskeletal Musculoskeletal: gait normal, strength equal bilaterally - Psychiatric Psychiatric: appropriate mood/affect, intact judgment & insight - Neurologic Neurologic: CNII-XII intact, moves all extremities Plan Follow up with: DOROTHY LEE MD [Primary Care Provider] - 3-5 Days Forms: Work/School Release Form Prescriptions: HYDROcodone/APAP 5-325 [[place] 5-325 mg TAB] 2 each PO Q6H PRN #20 tablet PRN Reason: Pain, Moderate (4-6)
[2019-03-21] MEDS: NACL 0.45% 1000 ML 1,000 ML IV SCH (11:27)
[2019-03-21 12:36] VITALS: BP 136/94
--- NOTE | 2019-03-21 15:29 | Progress Note ---
Assessment and Plan 28 yo F s/p laparoscopic appendectomy, POD 1 Plan: 1. reg diet 2. dc IVF 3. prn PO pain control 4. IS 5. OOB/ambulate 6. ok to dc from surgery standpoint. Verbal dc instructions given to patient. Instructed her to follow up with Dr. Gonzalez in 2 weeks. D/W Dr. Muro. Thank you, please call with questions. Subjective Date of service: 03/21/19 Narrative: Pt seen and examined. c/o pain near incisions. No f/c, cp, sob. Tolerated diet today however did not eat much because she didn't like the food. Objective Vital Signs - 12hr 03/21/19 03/21/19 03/21/19 04:22 07:12 07:42 Temperature 98.1 F 97.7 F Pulse Rate 65 66 Respiratory 17 18 Rate Blood Pressure 126/82 Blood Pressure 130/77 [Right] O2 Sat by Pulse 97 100 95 Oximetry 03/21/19 03/21/19 11:20 12:10 Temperature 97.7 F Pulse Rate 68 63 Respiratory 18 18 Rate Blood Pressure Blood Pressure 145/102 136/94 [Right] O2 Sat by Pulse 100 100 Oximetry - General physical appearance Narrative Exam: Gen: AAOx3. NAD CV: S1, S2+ resp; even and unlabored Abd; soft, ND, + periincional TTP. Incisions c/d/i. No r/r/g Ext: no c/c/e - Labs 03/21/19 04:36 03/21/19 04:36 Diabetes panel 03/20/19 03/21/19 Range/Units 15:50 04:36 Sodium 139 140 (137-145) mmol/L Potassium 4.1 4.2 (3.6-5.0) mmol/L Chloride 102.0 107.0 (98-107) mmol/L Carbon Dioxide 25 21 L (22-30) mmol/L BUN 8 10 (7-17) mg/dL Creatinine 0.7 0.8 (0.7-1.2) mg/dL Glucose 76 87 (65-100) mg/dL Calcium 8.8 8.5 (8.4-10.2) mg/dL AST 20 24 (5-40) units/L ALT 17 23 (7-56) units/L Alkaline Phosphatase 74 74 (35-129) units/L Total Protein 7.3 7.0 (6.3-8.2) g/dL Albumin 4.0 3.5 L (3.9-5) g/dL Calcium panel 03/20/19 03/21/19 Range/Units 15:50 04:36 Calcium 8.8 8.5 (8.4-10.2) mg/dL Albumin 4.0 3.5 L (3.9-5) g/dL Pituitary panel 03/20/19 03/21/19 Range/Units 15:50 04:36 Sodium 139 140 (137-145) mmol/L Potassium 4.1 4.2 (3.6-5.0) mmol/L Chloride 102.0 107.0 (98-107) mmol/L Carbon Dioxide 25 21 L (22-30) mmol/L BUN 8 10 (7-17) mg/dL Creatinine 0.7 0.8 (0.7-1.2) mg/dL Glucose 76 87 (65-100) mg/dL Calcium 8.8 8.5 (8.4-10.2) mg/dL Adrenal panel 03/20/19 03/21/19 Range/Units 15:50 04:36 Sodium 139 140 (137-145) mmol/L Potassium 4.1 4.2 (3.6-5.0) mmol/L Chloride 102.0 107.0 (98-107) mmol/L Carbon Dioxide 25 21 L (22-30) mmol/L BUN 8 10 (7-17) mg/dL Creatinine 0.7 0.8 (0.7-1.2) mg/dL Glucose 76 87 (65-100) mg/dL Calcium 8.8 8.5 (8.4-10.2) mg/dL Total Bilirubin 0.20 0.20 (0.1-1.2) mg/dL AST 20 24 (5-40) units/L ALT 17 23 (7-56) units/L Alkaline Phosphatase 74 74 (35-129) units/L Total Protein 7.3 7.0 (6.3-8.2) g/dL Albumin 4.0 3.5 L (3.9-5) g/dL
[2019-03-21] MEDS ORDERED: LOVENOX SUB-Q SCH (22:00)
== END 2019-03-21 16:09 | disposition home or self-care (01) | DRG 340 ==
LOC: ED 15:06 → 3B-SURG 18:07
PROVIDERS: ADMIT Internal Medicine; ATTEND Internal Medicine
PROC: 0DTJ4ZZ Resection of Appendix, Percutaneous Endoscopic Approach (ICD-10-PCS; principal; 2019-03-20)
DX: K35.33 Acute appendicitis with perforation, localized peritonitis, and gangrene, with abscess (principal); K38.1 Appendicular concretions; F12.90 Cannabis use, unspecified, uncomplicated; K66.0 Peritoneal adhesions (postprocedural) (postinfection); Z79.899 Other long term (current) drug therapy
CPT/HCPCS: 36415; 80053; 81001; 81025; 83690; 85007; 85025; 88304; G0378; J0330; J0690; J0692; J1170; J1885; J2250; J2270; J2405; J2543; J2704; J2710; J7030

== ENCOUNTER 2019-03-25 16:03 | Emergency (ER) | payer MEDICAID ==
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
[2019-03-25 16:45] LABS: Basophils % (Auto) 1.4 % (0.0-1.8); Eosinophils % (Auto) 1.1 % (0.0-4.3); Hematocrit 32.9 % (30.3-42.9); Hemoglobin 10.1 gm/dl (10.1-14.3); Lymphocytes # (Auto) 1.3 K/mm3 (1.2-5.4); Lymphocytes % (Auto) 47.6 % (13.4-35.0); Mean Corpuscular HGB Conc 31 % (30-34); Monocytes # (Auto) 0.4 K/mm3 (0.0-0.8); Monocytes % (Auto) 14.4 % (0.0-7.3); Platelet Count 347 K/mm3 (140-440); Red Blood Count 4.75 M/mm3 (3.65-5.03); Red Cell Distribution Width 18.8 % (13.2-15.2)
[2019-03-25 16:46] LABS: Mean Corpuscular Volume 69 fl (79-97)
[2019-03-25 16:49] LABS: Alanine Aminotransferase 16 units/L (7-56); Albumin 4.3 g/dL (3.9-5); BUN/Creatinine Ratio 11; Blood Urea Nitrogen 9 mg/dL (7-17); Calcium 9.4 mg/dL (8.4-10.2); Hemolysis Index 0
[2019-03-25 16:50] LABS: Bilirubin,Direct < 0.2 mg/dL (0-0.2)
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
[2019-03-25] MEDS ORDERED: DILAUDID IV ONE (18:52)
--- NOTE | 2019-03-25 20:59 | Cat Scan Report ---
PROCEDURE: CT ABDOMEN PELVIS W CON TECHNIQUE: Computerized axial tomography of the abdomen and pelvis was performed after the IV inject ion of iodinated nonionic contrast. CT DOSE LENGTH PRODUCT: 812.2 mGycm HISTORY: abd pain COMPARISONS: March 15, 2019 . FINDINGS: Liver, spleen, pancreas and bilateral adrenal glands are within normal limits. Bilateral kidneys demo nstrate uniform enhancement without hydronephrosis. Urinary bladder is empty. Aorta is of normal evangelist jazmin. Minimal degree of free fluid is noted in the pelvic cavity which is within physiologic limits. T here is no free air. Gallbladder is unremarkable. Small bowel loops are within normal limits. An irre gular linear collection of barium is noted along the medial aspect of cecum most likely representing residual barium within normal appendix. Previously noted calcific density in the right lower quadrant is no longer visualized. IMPRESSION: No obvious acute intra-abdominal or pelvic pathology. A linear collection of barium in the right lower quadrant most likely represents residual barium with in a normal appendix. This document is electronically signed by Zach Mayo MD., Mar 25 2019 09:19:05 PM ET
[2019-03-25 21:54] LABS: Bilirubin,Urine NEG (Negative); Color,Urine Yellow (Yellow); Mucus,Urine FEW /HPF; Protein,Urine <15 mg/dL mg/dL (Negative); Urobilinogen,Urine < 2.0 mg/dL (<2.0)
[2019-03-25 22:02] LABS: Blood,Urine LG (Negative)
[2019-03-25 22:18] VITALS: BP 132/79
== END 2019-03-25 22:10 | disposition home or self-care (01) ==
LOC: ED 16:03
DX: S30.1XXA Contusion of abdominal wall, initial encounter (principal); N92.6 Irregular menstruation, unspecified; Y08.89XA Assault by other specified means, initial encounter; Y93.89 Activity, other specified; Y92.89 Other specified places as the place of occurrence of the external cause; Y99.8 Other external cause status
CPT/HCPCS: 36415; 74177; 80048; 80076; 81001; 83690; 84703; 85025; 96374; 99284; J1170; Q9967

== ENCOUNTER 2019-04-06 05:38 | Emergency (ER) | payer MEDICAID ==
[2019-04-06] MEDS ORDERED: TORADOL IVP ONE (06:41)
[2019-04-06] MEDS ORDERED: NACL 0.9% 1000 ML 1,000 ML IV ONE (06:41)
[2019-04-06] MEDS ORDERED: ZOFRAN IV ONE (06:41)
[2019-04-06 06:49] LABS: Basophils % (Auto) 0.7 % (0.0-1.8); Eosinophils % (Auto) 0.2 % (0.0-4.3); Lymphocytes # (Auto) 0.8 K/mm3 (1.2-5.4); Lymphocytes % (Auto) 16.8 % (13.4-35.0); Mean Corpuscular HGB Conc 29 % (30-34); Mean Corpuscular Volume 74 fl (79-97); Monocytes # (Auto) 0.5 K/mm3 (0.0-0.8); Monocytes % (Auto) 10.3 % (0.0-7.3); Platelet Count 282 K/mm3 (140-440); Red Blood Count 4.77 M/mm3 (3.65-5.03); Red Cell Distribution Width 19.2 % (13.2-15.2)
[2019-04-06] MEDS ORDERED: BENADRYL IV ONE (06:52)
[2019-04-06] MEDS ORDERED: BENADRYL ONE (06:55)
--- NOTE | 2019-04-06 06:56 | Emergency Department Report ---
ED General Adult HPI - General Chief complaint: Abdominal Pain Stated complaint: ABDOMINAL PAIN/POST SURGERYX 2WEEKS Time Seen by Provider: 04/06/19 06:27 Source: EMS Mode of arrival: Stretcher Limitations: No Limitations - History of Present Illness Initial comments: Patient presents to the emergency department with a chief complaint of diffuse chest pain that started last night. Patient is 2 weeks status post appendectomy as ran out of her hydrocodone. Patient states her chest pain is worse when taking deep breaths. Patient also complains of nausea vomiting. -: Sudden Location: chest Radiation: non-radiation Severity scale (0 -10): 3 Quality: dull Consistency: constant Improves with: none Worsens with: none Associated Symptoms: denies other symptoms Treatments Prior to Arrival: none - Related Data Previous Rx's Medication Instructions Recorded Last Taken Type Nystatin Oint [Mycostatin Oint] 1 applicatio TP BID 7 Days #1 tube 03/24/18 Un known Rx HYDROcodone/APAP 5-325 [[place] 1 each PO Q6H PRN #10 tablet 03/25/19 Unknown Rx 5-325 mg TAB] Ondansetron [Zofran Odt] 4 mg PO Q4HR PRN #20 tab.rapdis 04/06/19 Unknown Rx Promethazine [Phenergan TAB] 25 mg PO Q6HR PRN #20 tab 04/06/19 Unknown Rx Sulfamethoxazole/Trimethoprim 1 each PO BID #14 tablet 04/06/19 Unknown Rx [Bactrim DS TAB] Allergies Allergy/AdvReac Type Severity Reaction Status Date / Time No Known Allergies Allergy Verified 03/25/19 16:05 ED Review of Systems ROS: Stated complaint: ABDOMINAL PAIN/POST SURGERYX 2WEEKS Other details as noted in HPI Comment: All other systems reviewed and negative Constitutional: denies: chills, fever Eyes: denies: eye pain, eye discharge, vision change ENT: denies: ear pain, throat pain Respiratory: denies: cough, shortness of breath, wheezing Cardiovascular: chest pain. denies: palpitations Endocrine: no symptoms reported Gastrointestinal: denies: abdominal pain, nausea, diarrhea Genitourinary: denies: urgency, dysuria, discharge Musculoskeletal: denies: back pain, joint swelling, arthralgia Skin: denies: rash, lesions Neurological: denies: headache, weakness, paresthesias Psychiatric: denies: anxiety, depression Hematological/Lymphatic: denies: easy bleeding, easy bruising ED Past Medical Hx - Past Medical History Previous Medical History?: Yes Hx Hypertension: No Hx Congestive Heart Failure: No Hx Diabetes: No Hx Deep Vein Thrombosis: No Hx Renal Disease: No Hx Sickle Cell Disease: No Hx Seizures: No Hx Asthma: No Hx COPD: No Hx HIV: No Additional medical history: Vaginal yeast infection. Bacterial vaginosis. Abnormal menses - Surgical History Past Surgical History?: Yes Hx Appendectomy: Yes (2 weeks ago) - Social History Smoking Status: Never Smoker Substance Use Type: None - Medications Home Medications: Home Medications Medication Instructions Recorded Confirmed Last Taken Type Nystatin Oint [Mycostatin Oint] 1 applicatio TP BID 7 Days #1 tube 03/24/18 Unknown Rx HYDROcodone/APAP 5-325 [[place] 1 each PO Q6H PRN #10 tablet 03/25/19 Unknown Rx 5-325 mg TAB] Ondansetron [Zofran Odt] 4 mg PO Q4HR PRN #20 tab.rapdis 04/06/19 Unknown Rx Promethazine [Phenergan TAB] 25 mg PO Q6HR PRN #20 tab 04/06/19 Unknown Rx Sulfamethoxazole/Trimethoprim 1 each PO BID #14 tablet 04/06/19 Unknown Rx [Bactrim DS TAB] ED Physical Exam - General Limitations: No Limitations General appearance: alert, in no apparent distress - Head Head exam: Present: atraumatic, normocephalic - Eye Eye exam: Present: normal appearance - ENT ENT exam: Present: mucous membranes dry - Neck Neck exam: Present: normal inspection - Respiratory Respiratory exam: Present: normal lung sounds bilaterally. Absent: respiratory distress - Cardiovascular Cardiovascular Exam: Present: regular rate, normal rhythm. Absent: systolic murmur, diastolic murmur, rubs, gallop - GI/Abdominal GI/Abdominal exam: Present: soft, normal bowel sounds. Absent: distended, tenderness - Extremities Exam Extremities exam: Present: normal inspection - Back Exam Back exam: Present: normal inspection - Neurological Exam Neurological exam: Present: alert, oriented X3, CN II-XII intact. Absent: motor sensory deficit - Psychiatric Psychiatric exam: Present: normal affect, normal mood - Skin Skin exam: Present: warm, dry, intact, normal color. Absent: rash ED Course Vital Signs 04/06/19 04/06/19 04/06/19 05:58 06:05 09:48 Temperature 98.5 F Pulse Rate 71 75 Respiratory 20 20 18 Rate Blood Pressure 141/90 149/95 [Left] O2 Sat by Pulse 100 100 98 Oximetry ED Medical Decision Making - Lab Data Result diagrams: 04/06/19 06:16 04/06/19 06:16 Lab Results 04/06/19 04/06/19 04/06/19 Range/Units 06:16 06:16 06:16 WBC 5.0 (4.5-11.0) K/mm3 RBC 4.77 (3.65-5.03) M/mm3 Hgb 10.2 (10.1-14.3) gm/dl Hct 34.1 (30.3-42.9) % MCV 74 L (79-97) fl MCH 21 L (28-32) pg MCHC 29 L (30-34) % RDW 19.2 H (13.2-15.2) % Plt Count 282 (140-440) K/mm3 Lymph % (Auto) 16.8 (13.4-35.0) % [place] % (Auto) 10.3 H (0.0-7.3) % Eos % (Auto) 0.2 (0.0-4.3) % Baso % (Auto) 0.7 (0.0-1.8) % Lymph # 0.8 L (1.2-5.4) K/mm3 [place] # 0.5 (0.0-0.8) K/mm3 Eos # 0.0 (0.0-0.4) K/mm3 Baso # 0.0 (0.0-0.1) K/mm3 Seg Neutrophils % 72.0 H (40.0-70.0) % Seg Neutrophils # 3.6 (1.8-7.7) K/mm3 D-Dimer (0-234) ng/mlDDU Sodium 139 (137-145) mmol/L Potassium 3.4 L (3.6-5.0) mmol/L Chloride 102.7 (98-107) mmol/L Carbon Dioxide 12 L (22-30) mmol/L Anion Gap 28 mmol/L BUN 11 (7-17) mg/dL Creatinine 0.7 (0.7-1.2) mg/dL Estimated GFR > 60 ml/min BUN/Creatinine Ratio 16 % Glucose 87 (65-100) mg/dL Calcium 9.0 (8.4-10.2) mg/dL Total Bilirubin 0.30 (0.1-1.2) mg/dL AST 15 (5-40) units/L ALT 9 (7-56) units/L Alkaline Phosphatase 78 (35-129) units/L Troponin T < 0.010 (0.00-0.029) ng/mL Total Protein 7.7 (6.3-8.2) g/dL Albumin 4.0 (3.9-5) g/dL Albumin/Globulin Ratio 1.1 % Urine Color (Yellow) Urine Turbidity (Clear) Urine pH (5.0-7.0) Ur Specific [place] (1.003-1.030) Urine Protein (Negative) mg/dL Urine Glucose (UA) (Negative) mg/dL Urine Ketones (Negative) mg/dL Urine Blood (Negative) Urine Nitrite (Negative) Urine Bilirubin (Negative) Urine Urobilinogen (<2.0) mg/dL Ur Leukocyte Esterase (Negative) Urine WBC (Auto) (0.0-6.0) /HPF Urine RBC (Auto) (0.0-6.0) /HPF U Epithel Cells (Auto) (0-13.0) /HPF Urine Bacteria (Auto) (Negative) /HPF Urine Mucus /HPF Urine HCG, Qual (Negative) Urine Opiates Screen Urine Methadone Screen Ur Barbiturates Screen Ur Phencyclidine Scrn Ur Amphetamines Screen U Benzodiazepines Scrn Urine Cocaine Screen U Marijuana (THC) Screen Drugs of Abuse Note 04/06/19 04/06/19 04/06/19 Range/Units 07:18 08:35 08:38 WBC (4.5-11.0) K/mm3 RBC (3.65-5.03) M/mm3 Hgb (10.1-14.3) gm/dl Hct (30.3-42.9) % MCV (79-97) fl MCH (28-32) pg MCHC (30-34) % RDW (13.2-15.2) % Plt Count (140-440) K/mm3 Lymph % (Auto) (13.4-35.0) % [place] % (Auto) (0.0-7.3) % Eos % (Auto) (0.0-4.3) % Baso % (Auto) (0.0-1.8) % Lymph # (1.2-5.4) K/mm3 [place] # (0.0-0.8) K/mm3 Eos # (0.0-0.4) K/mm3 Baso # (0.0-0.1) K/mm3 Seg Neutrophils % (40.0-70.0) % Seg Neutrophils # (1.8-7.7) K/mm3 D-Dimer 151.37 (0-234) ng/mlDDU Sodium (137-145) mmol/L Potassium (3.6-5.0) mmol/L Chloride (98-107) mmol/L Carbon Dioxide (22-30) mmol/L Anion Gap mmol/L BUN (7-17) mg/dL Creatinine (0.7-1.2) mg/dL Estimated GFR ml/min BUN/Creatinine Ratio % Glucose (65-100) mg/dL Calcium (8.4-10.2) mg/dL Total Bilirubin (0.1-1.2) mg/dL AST (5-40) units/L ALT (7-56) units/L Alkaline Phosphatase (35-129) units/L Troponin T < 0.010 (0.00-0.029) ng/mL Total Protein (6.3-8.2) g/dL Albumin (3.9-5) g/dL Albumin/Globulin Ratio % Urine Color Yellow (Yellow) Urine Turbidity Clear (Clear) Urine pH 7.0 (5.0-7.0) Ur Specific [place] 1.017 (1.003-1.030) Urine Protein <15 mg/dl (Negative) mg/dL Urine Glucose (UA) Neg (Negative) mg/dL Urine Ketones 80 (Negative) mg/dL Urine Blood Neg (Negative) Urine Nitrite Neg (Negative) Urine Bilirubin Neg (Negative) Urine Urobilinogen < 2.0 (<2.0) mg/dL Ur Leukocyte Esterase Tr (Negative) Urine WBC (Auto) 11.0 H (0.0-6.0) /HPF Urine RBC (Auto) 3.0 (0.0-6.0) /HPF U Epithel Cells (Auto) 1.0 (0-13.0) /HPF Urine Bacteria (Auto) 1+ (Negative) /HPF Urine Mucus Few /HPF Urine HCG, Qual Negative (Negative) Urine Opiates Screen Urine Methadone Screen Ur Barbiturates Screen Ur Phencyclidine Scrn Ur Amphetamines Screen U Benzodiazepines Scrn Urine Cocaine Screen U Marijuana (THC) Screen Drugs of Abuse Note 04/06/19 Range/Units 08:38 WBC (4.5-11.0) K/mm3 RBC (3.65-5.03) M/mm3 Hgb (10.1-14.3) gm/dl Hct (30.3-42.9) % MCV (79-97) fl MCH (28-32) pg MCHC (30-34) % RDW (13.2-15.2) % Plt Count (140-440) K/mm3 Lymph % (Auto) (13.4-35.0) % [place] % (Auto) (0.0-7.3) % Eos % (Auto) (0.0-4.3) % Baso % (Auto) (0.0-1.8) % Lymph # (1.2-5.4) K/mm3 [place] # (0.0-0.8) K/mm3 Eos # (0.0-0.4) K/mm3 Baso # (0.0-0.1) K/mm3 Seg Neutrophils % (40.0-70.0) % Seg Neutrophils # (1.8-7.7) K/mm3 D-Dimer (0-234) ng/mlDDU Sodium (137-145) mmol/L Potassium (3.6-5.0) mmol/L Chloride (98-107) mmol/L Carbon Dioxide (22-30) mmol/L Anion Gap mmol/L BUN (7-17) mg/dL Creatinine (0.7-1.2) mg/dL Estimated GFR ml/min BUN/Creatinine Ratio % Glucose (65-100) mg/dL Calcium (8.4-10.2) mg/dL Total Bilirubin (0.1-1.2) mg/dL AST (5-40) units/L ALT (7-56) units/L Alkaline Phosphatase (35-129) units/L Troponin T (0.00-0.029) ng/mL Total Protein (6.3-8.2) g/dL Albumin (3.9-5) g/dL Albumin/Globulin Ratio % Urine Color (Yellow) Urine Turbidity (Clear) Urine pH (5.0-7.0) Ur Specific [place] (1.003-1.030) Urine Protein (Negative) mg/dL Urine Glucose (UA) (Negative) mg/dL Urine Ketones (Negative) mg/dL Urine Blood (Negative) Urine Nitrite (Negative) Urine Bilirubin (Negative) Urine Urobilinogen (<2.0) mg/dL Ur Leukocyte Esterase (Negative) Urine WBC (Auto) (0.0-6.0) /HPF Urine RBC (Auto) (0.0-6.0) /HPF U Epithel Cells (Auto) (0-13.0) /HPF Urine Bacteria (Auto) (Negative) /HPF Urine Mucus /HPF Urine HCG, Qual (Negative) Urine Opiates Screen Presumptive negative Urine Methadone Screen Presumptive negative Ur Barbiturates Screen Presumptive negative Ur Phencyclidine Scrn Presumptive negative Ur Amphetamines Screen Presumptive negative U Benzodiazepines Scrn Presumptive negative Urine Cocaine Screen Presumptive negative U Marijuana (THC) Screen Presumptive positive Drugs of Abuse Note Disclamer - EKG Data -: EKG Interpreted by Me EKG shows normal: sinus rhythm Rate: normal - Radiology Data Radiology results: report reviewed - Medical Decision Making Discussed results with patient Critical care attestation.: If time is entered above; I have spent that time in minutes in the direct care of this critically ill patient, excluding procedure time. ED Disposition Clinical Impression: Non-cardiac chest pain, Nausea & vomiting, UTI (urinary tract infection) Disposition: TO HOME OR SELFCARE Is pt being admited?: No Does the pt Need Aspirin: No Condition: Stable Instructions: Noncardiac Chest Pain (ED), Urinary Tract Infection in Women (ED), Acute Nausea and Vomiting (ED) Additional Instructions: return if worse Prescriptions: Sulfamethoxazole/Trimethoprim [Bactrim DS TAB] 1 each PO BID #14 tablet Promethazine [Phenergan TAB] 25 mg PO Q6HR PRN #20 tab PRN Reason: Nausea Ondansetron [Zofran Odt] 4 mg PO Q4HR PRN #20 tab.rapdis PRN Reason: Nausea Referrals: EVAN MARTIN MD [Primary Care Provider] - 3-5 Days [facility] [Provider Group] - 3-5 Days [facility] [Provider Group] - 3-5 Days Time of Disposition: 10:09
--- NOTE | 2019-04-06 07:00 | XRay Report ---
PROCEDURE: XR CHEST 1V AP TECHNIQUE: Chest radiograph single view. HISTORY: Chest Pain COMPARISONS: None . FINDINGS: No mediastinal shift. Cardiac silhouette is not enlarged. No pneumothorax, effusion, or focal pulmona ry opacity identified. No acute skeletal findings. IMPRESSION: No acute pulmonary finding identified. This document is electronically signed by Artie Skinner MD., April 06 2019 07:58:08 AM ET
[2019-04-06 07:03] LABS: Hemoglobin 10.2 gm/dl (10.1-14.3)
[2019-04-06 07:04] LABS: Hematocrit 34.1 % (30.3-42.9)
[2019-04-06 07:29] LABS: Alanine Aminotransferase 9 units/L (7-56); BUN/Creatinine Ratio 16; Blood Urea Nitrogen 11 mg/dL (7-17); Hemolysis Index 7
[2019-04-06] MEDS ORDERED: HALDOL IM ONE (08:38)
[2019-04-06 09:06] LABS: Bacteria,Urine 1+ /HPF (Negative); Bilirubin,Urine NEG (Negative); Blood,Urine NEG (Negative); Color,Urine Yellow (Yellow); Mucus,Urine FEW /HPF; Protein,Urine <15 mg/dL mg/dL (Negative); Urobilinogen,Urine < 2.0 mg/dL (<2.0)
[2019-04-06 09:16] LABS: Amphetamine Screen,Urine PRESUMPTIVE NEGATIVE; Benzodiazepines Screen,Urine PRESUMPTIVE NEGATIVE; Cocaine Screen,Urine PRESUMPTIVE NEGATIVE; Methadone Screen,Urine PRESUMPTIVE NEGATIVE; Opiate Screen,Urine PRESUMPTIVE NEGATIVE
[2019-04-06 09:31] LABS: HCG Qualitative,Urine Negative (Negative)
[2019-04-06 09:37] LABS: Cannabinoid Screen,Urine PRESUMPTIVE POSITIVE
[2019-04-06 09:49] VITALS: BP 149/95
== END 2019-04-06 12:04 | disposition home or self-care (01) ==
LOC: ED 05:38
DX: R07.89 Other chest pain (principal); R11.2 Nausea with vomiting, unspecified; N39.0 Urinary tract infection, site not specified; Z79.899 Other long term (current) drug therapy
CPT/HCPCS: 36415; 71045; 80053; 80307; 81001; 81025; 84484; 85025; 85379; 87086; 93005; 93010; 96361; 96372; 96374; 96375; 99284; J1200; J1630; J1885; J2405; J7030

== ENCOUNTER 2019-04-08 16:33 | Emergency (ER) | payer MEDICAID ==
[2019-04-08 18:00] LABS: Bacteria,Urine 1+ /HPF (Negative); Bilirubin,Urine NEG (Negative); Blood,Urine NEG (Negative); Color,Urine Amber (Yellow); Mucus,Urine 1+ /HPF
[2019-04-08 18:01] LABS: HCG Qualitative,Urine Negative (Negative)
[2019-04-08 18:02] LABS: Protein,Urine >500 mg/dL (Negative)
--- NOTE | 2019-04-08 18:17 | Emergency Department Report ---
Blank Doc - Documentation Documentation: s/p appendectomy 2 weeks ago now having severe pain to area and constipaitons Plan CT and Labs
[2019-04-08 20:05] LABS: Hematocrit 36.8 % (30.3-42.9); Mean Corpuscular HGB Conc 33 % (30-34); Platelet Count 363 K/mm3 (140-440); Red Blood Count 5.39 M/mm3 (3.65-5.03); Red Cell Distribution Width 18.7 % (13.2-15.2)
[2019-04-08 20:08] LABS: Mean Corpuscular Volume 68 fl (79-97)
[2019-04-08 20:18] LABS: Alanine Aminotransferase 9 units/L (7-56); Albumin 4.4 g/dL (3.9-5); BUN/Creatinine Ratio 10; Blood Urea Nitrogen 11 mg/dL (7-17); Calcium 9.7 mg/dL (8.4-10.2); Hemolysis Index 20
[2019-04-08 20:34] LABS: Basophils % (Manual) 0 % (0.0-1.8); Eosinophils % (Manual) 0 % (0.0-4.3); Total Cells Counted 100
[2019-04-08 20:35] LABS: Hypochromasia 1+
[2019-04-08] MEDS ORDERED: NACL 0.9% 1000 ML 1,000 ML IV ONE (21:08)
[2019-04-08] MEDS ORDERED: PEPCID IV ONE (21:08)
[2019-04-08] MEDS ORDERED: HALDOL IM STA (21:08)
[2019-04-08] MEDS ORDERED: BENTYL IM ONE (21:09)
--- NOTE | 2019-04-08 21:09 | Emergency Department Report ---
ED General Adult HPI - General Chief complaint: Abdominal Pain Stated complaint: ABD PAIN Time Seen by Provider: 04/08/19 17:30 Source: patient, RN notes reviewed, old records reviewed Mode of arrival: Ambulatory Limitations: No Limitations - History of Present Illness Initial comments: This is a 28-year-old female. The patient last month had a laparoscopic appendectomy performed by my colleague, Dr. Guerda Gonzalez The patient presents to the emergency room today with a complaint of recurrent abdominal pain. Of note, patient has presented multiple times to this department for similar complaints. Today, the patient presents to the emergency room today with a complaint of bilateral lower quadrant pain, epigastric pain, nausea, vomiting, chest pain w ith nausea and vomiting, chest pain with deep inspiration. She reports that her chest pain has been constant for the past 2 days. It is on the right side and left side, and it does not reach the back, arms or neck. She reports multiple episodes of nonbloody, nonbilious emesis. The abdominal pain is mostly epigastric, and occasionally bilateral lower quadrants. Of note, the patient has been seen in this department multiple times for similar symptoms, and has had extensive unremarkable objective testing, including unremarkable repeat CT scan of the abdomen and pelvis, negative d- dimer, and multiple troponins. Of note, a urine toxicology screen was treated a presence of marijuana 2 days ago. -: Gradual Location: chest, abdomen Radiation: other Severity scale (0 -10): 7 Quality: aching Consistency: constant, other Worsens with: other - Related Data Previous Rx's Medication Instructions Recorded Last Taken Type Nystatin Oint [Mycostatin Oint] 1 applicatio TP BID 7 Days #1 tube 03/24/18 Unknown Rx HYDROcodone/APAP 5-325 [[place] 1 each PO Q6H PRN #10 tablet 03/25/19 Unknown Rx 5-325 mg TAB] Ondansetron [Zofran Odt] 4 mg PO Q4HR PRN #20 tab.rapdis 04/06/19 Unknown Rx Promethazine [Phenergan TAB] 25 mg PO Q6HR PRN #20 tab 04/06/19 Unknown Rx Sulfamethoxazole/Trimethoprim 1 each PO BID #14 tablet 04/06/19 Unknown Rx [Bactrim DS TAB] Dicyclomine [Bentyl] 10 mg PO QID PRN #20 capsule 04/08/19 Unknown Rx Famotidine [Pepcid] 20 mg PO BID #10 tablet 04/08/19 Unknown Rx Metoclopramide [Reglan] 10 mg PO QID PRN #30 tablet 04/08/19 Unknown Rx Promethazine [Phenergan SUPPOS] 50 mg OR Q6H PRN #15 supp.rect 04/08/19 Unknown Rx Allergies Allergy/AdvReac Type Severity Reaction Status Date / Time No Known Allergies Allergy Verified 04/08/19 16:35 ED Review of Systems ROS: Stated complaint: ABD PAIN Other details as noted in HPI Constitutional: malaise. denies: fever Eyes: denies: eye discharge ENT: denies: epistaxis Respiratory: cough. denies: wheezing Cardiovascular: chest pain Gastrointestinal: abdominal pain, nausea, vomiting Musculoskeletal: arthralgia. denies: as per HPI Skin: denies: lesions Neurological: weakness Psychiatric: anxiety ED Past Medical Hx - Past Medical History Previous Medical History?: No Hx Hypertension: No Hx Congestive Heart Failure: No Hx Diabetes: No Hx Deep Vein Thrombosis: No Hx Renal Disease: No Hx Sickle Cell Disease: No Hx Seizures: No Hx Asthma: No Hx COPD: No Hx HIV: No Additional medical history: Vaginal yeast infection. Bacterial vaginosis. Abnormal menses - Surgical History Hx Appendectomy: Yes - Social History Smoking Status: Never Smoker Substance Use Type: None - Medications Home Medications: Home Medications Medication Instructions Recorded Confirmed Last Taken Type Nystatin Oint [Mycostatin Oint] 1 applicatio TP BID 7 Days #1 tube 03/24/18 Unknown Rx HYDROcodone/APAP 5-325 [[place] 1 each PO Q6H PRN #10 tablet 03/25/19 Unknown Rx 5-325 mg TAB] Ondansetron [Zofran Odt] 4 mg PO Q4HR PRN #20 tab.rapdis 04/06/19 Unknown Rx Promethazine [Phenergan TAB] 25 mg PO Q6HR PRN #20 tab 04/06/19 Unknown Rx Sulfamethoxazole/Trimethoprim 1 each PO BID #14 tablet 04/06/19 Unknown Rx [Bactrim DS TAB] Dicyclomine [Bentyl] 10 mg PO QID PRN #20 capsule 04/08/19 Unknown Rx Famotidine [Pepcid] 20 mg PO BID #10 tablet 04/08/19 Unknown Rx Metoclopramide [Reglan] 10 mg PO QID PRN #30 tablet 04/08/19 Unknown Rx Promethazine [Phenergan SUPPOS] 50 mg OR Q6H PRN #15 supp.rect 04/08/19 Unknown Rx ED Physical Exam - General Limitations: No Limitations General appearance: alert, anxious - Head Head exam: Present: atraumatic, normocephalic - Eye Eye exam: Present: normal appearance, EOMI. Absent: nystagmus - ENT ENT exam: Present: normal exam, normal orophraynx, mucous membranes moist, normal external ear exam - Neck Neck exam: Present: normal inspection, full ROM. Absent: tenderness, meningismus - Respiratory Respiratory exam: Present: normal lung sounds bilaterally. Absent: respiratory distress - Cardiovascular Cardiovascular Exam: Present: regular rate, normal rhythm, normal heart sounds. Absent: bradycardia, tachycardia, irregular rhythm, systolic murmur, diastolic murmur, rubs, gallop - GI/Abdominal GI/Abdominal exam: Present: soft, other (postsurgical scars does not demonstrate any active infectious etiology or process.). Absent: distended, tenderness, guarding, rebound, rigid, pulsatile mass - Extremities Exam Extremities exam: Present: normal inspection, full ROM, other (2+ pulses noted in the bilateral upper, lower extremities. Compartments soft. No long bony tenderness. The pelvis is stable.). Absent: pedal edema, joint swelling, calf tenderness - Back Exam Back exam: Present: normal inspection, full ROM. Absent: tenderness, CVA tenderness (R), CVA tenderness (L), paraspinal tenderness, vertebral tenderness - Neurological Exam Neurological exam: Present: alert, oriented X3, other (Extraocular movements intact. Tongue midline. No facial droop. Facial sensation intact to light touch in the V1, V2, V3 distribution bilaterally. 5 and 5 strength in 4 extremities.. Sensation is intact to light touch in 4 extremities.). Absent: motor sensory deficit - Psychiatric Psychiatric exam: Present: anxious - Skin Skin exam: Present: warm, dry, intact, normal color. Absent: rash ED Course Vital Signs 04/08/19 04/08/19 04/08/19 17:26 19:49 19:51 Temperature 98.2 F Pulse Rate 110 H 96 H Respiratory 16 18 17 Rate Blood Pressure 151/108 164/99 [Left] O2 Sat by Pulse 100 99 Oximetry 04/08/19 22:16 Temperature Pulse Rate 80 Respiratory 16 Rate Blood Pressure 157/101 [Left] O2 Sat by Pulse 99 Oximetry - Reevaluation(s) Reevaluation #1: 04/08/19 22:07 Differential diagnosis, including not limited to: Cannabinoid hyperemesis syndrome, GERD, gastritis, hiatal hernia, postoperative infection, colitis, diverticulitis, intra-abdominal abscess, acute coronary syndrome, pulmonary embolus, pleuritis Assessment and plan: 28-year-old female with multiple complaints, including abdo syed pain, nausea, vomiting, chest pain, pleuritic pain. CT scan today appears to be unchanged from prior CT scan from March 25. Multiple negative troponins over the past few days. CT scan of the chest shows no acute process. CT scan of the abdomen and pelvis today shows no acute process. EKG unchanged from prior. Low risk for major adverse cardiac event as per the heart score. I suspect that the patient's symptoms may be related to exposure to cannabis, although she adamantly denies that she smokes cannabis. However, she will be treated with nausea medicine, pain medication, IV fluids, and we will reassess. 04/08/19 22:44 Reevaluation #2: 04/08/19 22:44 Patient is reassessed. Tachycardia improved. Patient feels improved. No active vomiting. Reports that she feels improved. Contacted covering general surgeon, Dr. Jesse Gonzales, who has reviewed the patient's medical records and information, and reportedly has not followed up with Dr. Gonzalez she has placed the patient on the general surgery clinic scheduled tomorrow, and instructions the patient follow-up tomorrow sometime between 9 and 9:30 in the morning. Strongly advised the patient to avoid consumption and exposure of cannabis, marijuana containing products, and we will discharge with antiemetic medication. ED Medical Decision Making - Lab Data Result diagrams: 04/08/19 19:45 04/08/19 19:45 Vital Signs 04/08/19 04/08/19 04/08/19 17:26 19:49 19:51 Temperature 98.2 F Pulse Rate 110 H 96 H Respiratory 16 18 17 Rate Blood Pressure 151/108 164/99 [Left] O2 Sat by Pulse 100 99 Oximetry Lab Results 04/08/19 04/08/19 04/08/19 Range/Units 17:20 19:45 19:45 WBC 6.8 (4.5-11.0) K/mm3 RBC 5.39 H (3.65-5.03) M/mm3 Hgb 12.0 (10.1-14.3) gm/dl Hct 36.8 (30.3-42.9) % MCV 68 L (79-97) fl MCH 22 L (28-32) pg MCHC 33 (30-34) % RDW 18.7 H (13.2-15.2) % Plt Count 363 (140-440) K/mm3 Lymph % (Auto) Mica Plate Layer [place] % (Auto) Mica Plate Layer Eos % (Auto) Mica Plate Layer Baso % (Auto) Mica Plate Layer Lymph # Mica Plate Layer [place] # Mica Plate Layer Eos # Mica Plate Layer Baso # Mica Plate Layer Add Manual Diff Complete Total Counted 100 Seg Neutrophils % Mica Plate Layer Seg Neuts % (Manual) 47.0 (40.0-70.0) % Band Neutrophils % 0 % Lymphocytes % (Manual) 32.0 (13.4-35.0) % Reactive Lymphs % (Man) 0 % Monocytes % (Manual) 21.0 H (0.0-7.3) % Eosinophils % (Manual) 0 (0.0-4.3) % Basophils % (Manual) 0 (0.0-1.8) % Metamyelocytes % 0 % Myelocytes % 0 % Promyelocytes % 0 % Blast Cells % 0 % Nucleated RBC % Not Reportable Seg Neutrophils # Mica Plate Layer Seg Neutrophils # Man 3.2 (1.8-7.7) K/mm3 Band Neutrophils # 0.0 K/mm3 Lymphocytes # (Manual) 2.2 (1.2-5.4) K/mm3 Abs React Lymphs (Man) 0.0 K/mm3 Monocytes # (Manual) 1.4 H (0.0-0.8) K/mm3 Eosinophils # (Manual) 0.0 (0.0-0.4) K/mm3 Basophils # (Manual) 0.0 (0.0-0.1) K/mm3 Metamyelocytes # 0.0 K/mm3 Myelocytes # 0.0 K/mm3 Promyelocytes # 0.0 K/mm3 Blast Cells # 0.0 K/mm3 WBC Morphology Not Reportable Hypersegmented Neuts Not Reportable Hyposegmented Neuts Not Reportable Hypogranular Neuts Not Reportable Smudge Cells Not Reportable Toxic Granulation Not Reportable Toxic Vacuolation Not Reportable Dohle Bodies Not Reportable Pelger-Huet Anomaly Not Reportable Ca Rods Not Reportable Platelet Estimate Not Reportable Clumped Platelets Not Reportable Plt Clumps, EDTA Not Reportable Large Platelets Not Reportable Giant Platelets Not Reportable Platelet Satelliting Not Reportable Plt Morphology Comment Not Reportable RBC Morphology Not Reportable Dimorphic RBCs Not Reportable Polychromasia Not Reportable Hypochromasia 1+ Poikilocytosis Not Reportable Anisocytosis Not Reportable Microcytosis 1+ Macrocytosis Not Reportable Spherocytes Not Reportable Pappenheimer Bodies Not Reportable Sickle Cells Not Reportable Target Cells Not Reportable Tear Drop Cells Not Reportable Ovalocytes Not Reportable Helmet Cells Not Reportable [place] Bodies Not Reportable [place] Rings Not Reportable [place]yla Cells Not Reportable Bite Cells Not Reportable Crenated Cell Not Reportable Elliptocytes Not Reportable Acanthocytes (Spur) Not Reportable Rouleaux Not Reportable Hemoglobin C Crystals Not Reportable Schistocytes Not Reportable Malaria parasites Not Reportable Bobby Bodies Not Reportable Hem Pathologist Commnt No Sodium 131 L D (137-145) mmol/L Potassium 4.2 D (3.6-5.0) mmol/L Chloride 93.9 L (98-107) mmol/L Carbon Dioxide 21 L D (22-30) mmol/L Anion Gap 20 mmol/L BUN 11 (7-17) mg/dL Creatinine 1.1 D (0.7-1.2) mg/dL Estimated GFR > 60 ml/min BUN/Creatinine Ratio 10 % Glucose 93 (65-100) mg/dL Calcium 9.7 (8.4-10.2) mg/dL Magnesium (1.7-2.3) mg/dL Total Bilirubin 0.40 (0.1-1.2) mg/dL AST 17 (5-40) units/L ALT 9 (7-56) units/L Alkaline Phosphatase 88 (35-129) units/L Troponin T (0.00-0.029) ng/mL Total Protein 8.8 H (6.3-8.2) g/dL Albumin 4.4 (3.9-5) g/dL Albumin/Globulin Ratio 1.0 % Lipase 31 (13-60) units/L Urine Color Terese (Yellow) Urine Turbidity Cloudy (Clear) Urine pH 6.0 (5.0-7.0) Ur Specific [place] 1.023 (1.003-1.030) Urine Protein >500 (Negative) mg/dL Urine Glucose (UA) 50 (Negative) mg/dL Urine Ketones Tr (Negative) mg/dL Urine Blood Neg (Negative) Urine Nitrite Neg (Negative) Urine Bilirubin Neg (Negative) Urine Urobilinogen 2.0 (<2.0) mg/dL Ur Leukocyte Esterase Sm (Negative) Urine WBC (Auto) 17.0 H (0.0-6.0) /HPF Urine RBC (Auto) 7.0 (0.0-6.0) /HPF U Epithel Cells (Auto) 32.0 H (0-13.0) /HPF Urine Bacteria (Auto) 1+ (Negative) /HPF Urine Mucus 1+ /HPF Urine Yeast (Budding) 2+ /HPF Urine HCG, Qual Negative (Negative) 04/08/19 Range/Units 19:45 WBC (4.5-11.0) K/mm3 RBC (3.65-5.03) M/mm3 Hgb (10.1-14.3) gm/dl Hct (30.3-42.9) % MCV (79-97) fl MCH (28-32) pg MCHC (30-34) % RDW (13.2-15.2) % Plt Count (140-440) K/mm3 Lymph % (Auto) [place] % (Auto) Eos % (Auto) Baso % (Auto) Lymph # [place] # Eos # Baso # Add Manual Diff Total Counted Seg Neutrophils % Seg Neuts % (Manual) (40.0-70.0) % Band Neutrophils % % Lymphocytes % (Manual) (13.4-35.0) % Reactive Lymphs % (Man) % Monocytes % (Manual) (0.0-7.3) % Eosinophils % (Manual) (0.0-4.3) % Basophils % (Manual) (0.0-1.8) % Metamyelocytes % % Myelocytes % % Promyelocytes % % Blast Cells % % Nucleated RBC % Seg Neutrophils # Seg Neutrophils # Man (1.8-7.7) K/mm3 Band Neutrophils # K/mm3 Lymphocytes # (Manual) (1.2-5.4) K/mm3 Abs React Lymphs (Man) K/mm3 Monocytes # (Manual) (0.0-0.8) K/mm3 Eosinophils # (Manual) (0.0-0.4) K/mm3 Basophils # (Manual) (0.0-0.1) K/mm3 Metamyelocytes # K/mm3 Myelocytes # K/mm3 Promyelocytes # K/mm3 Blast Cells # K/mm3 WBC Morphology Hypersegmented Neuts Hyposegmented Neuts Hypogranular Neuts Smudge Cells Toxic Granulation Toxic Vacuolation Dohle Bodies Pelger-Huet Anomaly Ca Rods Platelet Estimate Clumped Platelets Plt Clumps, EDTA Large Platelets Giant Platelets Platelet Satelliting Plt Morphology Comment RBC Morphology Dimorphic RBCs Polychromasia Hypochromasia Poikilocytosis Anisocytosis Microcytosis Macrocytosis Spherocytes Pappenheimer Bodies Sickle Cells Target Cells Tear Drop Cells Ovalocytes Helmet Cells [place] Bodies [place] Cells Bite Cells Crenated Cell Elliptocytes Acanthocytes (Spur) Rouleaux Hemoglobin C Crystals Schistocytes Malaria parasites Bobby Bodies Hem Pathologist Commnt Sodium (137-145) mmol/L Potassium (3.6-5.0) mmol/L Chloride (98-107) mmol/L Carbon Dioxide (22-30) mmol/L Anion Gap mmol/L BUN (7-17) mg/dL Creatinine (0.7-1.2) mg/dL Estimated GFR ml/min BUN/Creatinine Ratio % Glucose (65-100) mg/dL Calcium (8.4-10.2) mg/dL Magnesium 2.20 (1.7-2.3) mg/dL Total Bilirubin (0.1-1.2) mg/dL AST (5-40) units/L ALT (7-56) units/L Alkaline Phosphatase (35-129) units/L Troponin T < 0.010 (0.00-0.029) ng/mL Total Protein (6.3-8.2) g/dL Albumin (3.9-5) g/dL Albumin/Globulin Ratio % Lipase (13-60) units/L Urine Color (Yellow) Urine Turbidity (Clear) Urine pH (5.0-7.0) Ur Specific [place] (1.003-1.030) Urine Protein (Negative) mg/dL Urine Glucose (UA) (Negative) mg/dL Urine Ketones (Negative) mg/dL Urine Blood (Negative) Urine Nitrite (Negative) Urine Bilirubin (Negative) Urine Urobilinogen (<2.0) mg/dL Ur Leukocyte Esterase (Negative) Urine WBC (Auto) (0.0-6.0) /HPF Urine RBC (Auto) (0.0-6.0) /HPF U Epithel Cells (Auto) (0-13.0) /HPF Urine Bacteria (Auto) (Negative) /HPF Urine Mucus /HPF Urine Yeast (Budding) /HPF Urine HCG, Qual (Negative) - EKG Data -: EKG Interpreted by Ca EKG shows normal: sinus rhythm Rate: normal - EKG Data 04/08/19 22:06 EKG today shows a sinus rhythm, 71 bpm, normal axis, normal intervals, high left ventricular voltage, this is an unremarkable EKG, this EKG appears to be unchanged from prior EKG from 04/06/2019. - Radiology Data Radiology results: report reviewed, image reviewed Print Report Referring Physician: IOANA GARCIA Patient Name: BEBE DEY Date of : 1990 Sex: Female Report Date: 2019-04-08 Report Status: [place] [address] Cat Scan Report Signed Patient: BEBE DEY MR #: [id number] : 1990 Acct:[id number] Age/Sex: 28 / F ADM Date: 04/08/19 Loc: ED Attending Dr: Ordering Physician: IOANA GARCIA MD Date of Service: 04/08/19 Procedure(s): CT angio chest Accession Number(s): [id number] cc: IOANA GARCIA MD PROCEDURE: CT ANGIO CHEST TECHNIQUE: Computerized tomographic angiography of the chest was performed after the IV injection of iodinated nonionic contrast including image processing. The image data was postprocessed using 2-dimensional multiplanar reformatted (MPR) and 3-dimensional (MIP and/or volume rendered) techniques. Automated exposure control, adjustment of mA and/or kV according to patient size, or iterative reconstruction dose optimization techniques were utilized. CT DOSE LENGTH PRODUCT: 1321.5 mGycm HISTORY: post op sob COMPARISONS: None . FINDINGS: Heart and pericardium: Normal. Thoracic aorta: Normal. Pulmonary vasculature: Normal. Lymph nodes: No enlarged thoracic lymph nodes. Lungs: Normal. Pleural space: No effusion, thickening, or pneumothorax. Musculoskeletal structures: No significant abnormality. Upper abdominal structures: No significant abnormality. IMPRESSION: Unremarkable study. This document is electronically signed by Marito Mayo MD., April 08 2019 09:24:23 PM ET Transcribed By: [facility] [place]ictated By: MARITO MAYO Electronically Authenticated By: MARITO MAYO Signed Date/Time: 04/08/192125 Print Report Referring Physician: IOANA GARCIA Patient Name: BEBE DEY Date of : 1990 Sex: Female Report Date: 2019-04-08 Report Status: [place] [address] Cat Scan Report Signed Patient: BEBE DEY MR #: [id number] : 1990 Acct:[id number] Age/Sex: 28 / F ADM Date: 04/08/19 Loc: ED Attending Dr: Ordering Physician: IOANA GARCIA MD Date of Service: 04/08/19 Procedure(s): CT abdomen pelvis w con Accession Number(s): [id number] cc: IOANA GARCIA MD PROCEDURE: CT ABDOMEN PELVIS W CON TECHNIQUE: Computerized axial tomography of the abdomen and pelvis was performed with intravenous contrast. HISTORY: post op sob abd pain s/p appendectomy COMPARISONS: CT A/P 03/25/2019 . FINDINGS: Visualized lower thorax: No significant abnormality. Liver: Normal size and attenuation. There is a hypodense 2.4 x 1.5 cm focus along the anterior margin of the left lobe liver adjacent to the falciform ligament. This is likely focal fatty deposition is stable. Spleen: Normal size and attenuation. Gallbladder and biliary system: Normal. Pancreas: Normal. Adrenals: Normal. Kidneys: Normal. GI tract: Normal . Lymph nodes and mesentery: Normal. Vasculature: Normal.. Bladder: Normal. Reproductive organs: Uterus is retroverted. Peritoneum: There is a small amount of free fluid in the cul-de-sac and extending along both adnexa. Musculoskeletal structures: No significant abnormality. Other: None. IMPRESSION: 1. No acute intra-abdominal process noted. Small amount of free fluid in the cul-de-sac extending along both adnexa is likely postsurgical 2. Focal fatty deposition in the left lobe liver 3. Uterus is retroverted This document is electronically signed by Rebekah Mccarthy MD., April 08 2019 09:52:10 PM ET Transcribed By: [facility] Dictated By: REBEKAH MCCARTHY MD Electronically Authenticated By: REBEKAH MCCARTHY MD Signed Date/Time: 04/08/19 2133 Critical care attestation.: If time is entered above; I have spent that time in minutes in the direct care of this critically ill patient, excluding procedure time. ED Disposition Clinical Impression: History of nausea and vomiting, History of abdominal pain, History of chest pain Disposition: -01 TO HOME OR SELFCARE Is pt being admited?: No Does the pt Need Aspirin: No Condition: Stable Additional Instructions: Avoid consumption of Motrin, ibuprofen, Naprosyn, Aleve, heavy spicy foods. Do not smoke marijuana or cannabis, and avoid exposure to marijuana, cannabis. Please follow up tomorrow morning, with the general surgeon, Dr. Guerda Gonzalez. An appointment has been maybe few to follow-up in his office, and we recommend that you presented to the clinic at 9:00 in the morning, and informed the front office staff that he was seen here in the emergency room yesterday, and that his covering colleague, Dr. Jesse Gonzales has scheduled you for an appointment first thing tomorrow morning. Take the pain medication, nausea medication as needed/directed, advance diet as tolerated, avoid heavy, spicy foods, and alcohol consumption. Do not take metformin for the next 48 hours, if patient takes his medication. Follow-up with a primary care doctor or wax pot tender within the next 7-10 days for elevated blood pressure, hypertension noted in the emergency room, and complaint of chest pain. Return to the emergency room right away with new, worsening or different symptoms, or symptoms not present on the initial emergency room evaluation. Referrals: BRITTANY GONZALEZ MD [Staff Physician] - 24 Hours (follow up tommorow at 9 am) [facility] [Outside] - 7-10 days [facility]] - 7-10 days
--- NOTE | 2019-04-08 21:26 | Cat Scan Report ---
PROCEDURE: CT ANGIO CHEST TECHNIQUE: Computerized tomographic angiography of the chest was performed after the IV injection of iodinated nonionic contrast including image processing. The image data was postprocessed using 2-di mensional multiplanar reformatted (MPR) and 3-dimensional (MIP and/or volume rendered) techniques. Au tomated exposure control, adjustment of mA and/or kV according to patient size, or iterative reconstr uction dose optimization techniques were utilized. CT DOSE LENGTH PRODUCT: 1321.5 mGycm HISTORY: post op sob COMPARISONS: None . FINDINGS: Heart and pericardium: Normal. Thoracic aorta: Normal. Pulmonary vasculature: Normal. Lymph nodes: No enlarged thoracic lymph nodes. Lungs: Normal. Pleural space: No effusion, thickening, or pneumothorax. Musculoskeletal structures: No significant abnormality. Upper abdominal structures: No significant abnormality. IMPRESSION: Unremarkable study. This document is electronically signed by Zach Mayo MD., April 08 2019 09:24:23 PM ET
--- NOTE | 2019-04-08 21:53 | Cat Scan Report ---
PROCEDURE: CT ABDOMEN PELVIS W CON TECHNIQUE: Computerized axial tomography of the abdomen and pelvis was performed with intravenous co ntrast. HISTORY: post op sob abd pain s/p appendectomy COMPARISONS: CT A/P 03/25/2019 . FINDINGS: Visualized lower thorax: No significant abnormality. Liver: Normal size and attenuation. There is a hypodense 2.4 x 1.5 cm focus along the anterior margin of the left lobe liver adjacent to the falciform ligament. This is likely focal fatty deposition is stable. Spleen: Normal size and attenuation. Gallbladder and biliary system: Normal. Pancreas: Normal. Adrenals: Normal. Kidneys: Normal. GI tract: Normal . Lymph nodes and mesentery: Normal. Vasculature: Normal.. Bladder: Normal. Reproductive organs: Uterus is retroverted. Peritoneum: There is a small amount of free fluid in the cul-de-sac and extending along both adnexa. Musculoskeletal structures: No significant abnormality. Other: None. IMPRESSION: 1. No acute intra-abdominal process noted. Small amount of free fluid in the cul-de-sac extending jaimee ng both adnexa is likely postsurgical 2. Focal fatty deposition in the left lobe liver 3. Uterus is retroverted This document is electronically signed by Rebekah Mccarthy MD., April 08 2019 09:52:10 PM ET
[2019-04-08 22:17] VITALS: BP 157/101
== END 2019-04-08 23:12 | disposition home or self-care (01) ==
LOC: ED 16:33
DX: R11.2 Nausea with vomiting, unspecified (principal); R07.89 Other chest pain; R10.13 Epigastric pain; R10.31 Right lower quadrant pain; R10.32 Left lower quadrant pain; Z90.49 Acquired absence of other specified parts of digestive tract
CPT/HCPCS: 36415; 71275; 74177; 80053; 81001; 81025; 83690; 83735; 84484; 85007; 85025; 87086; 93005; 93010; 96361; 96372; 96374; 99285; J0500; J1630; J7030; Q9967

== ENCOUNTER 2019-04-11 06:53 | Emergency (ER) | payer MEDICAID ==
[2019-04-11 07:46] LABS: Hematocrit 41.8 % (30.3-42.9); Hemoglobin 13.1 gm/dl (10.1-14.3); Mean Corpuscular HGB Conc 31 % (30-34); Platelet Count 350 K/mm3 (140-440); Red Cell Distribution Width 18.5 % (13.2-15.2)
[2019-04-11 07:48] LABS: Bilirubin,Urine NEG (Negative); Blood,Urine LG (Negative); Color,Urine Amber (Yellow); Urobilinogen,Urine < 2.0 mg/dL (<2.0)
[2019-04-11 07:54] LABS: Bacteria,Urine 2+ /HPF (Negative); Mucus,Urine 3+ /HPF
[2019-04-11 07:57] LABS: Mean Corpuscular Volume 70 fl (79-97)
[2019-04-11 08:09] LABS: Alanine Aminotransferase 9 units/L (7-56); Albumin 4.3 g/dL (3.9-5); BUN/Creatinine Ratio 9; Blood Urea Nitrogen 8 mg/dL (7-17); Calcium 9.3 mg/dL (8.4-10.2); Hemolysis Index 3
[2019-04-11] MEDS ORDERED: PROTONIX IV ONE (08:55)
[2019-04-11] MEDS ORDERED: K-DUR PO ONE (08:55)
[2019-04-11] MEDS ORDERED: MORPHINE IV ONE (08:55)
[2019-04-11] MEDS ORDERED: ZOFRAN IV ONE (08:55)
--- NOTE | 2019-04-11 08:55 | Emergency Department Report ---
ED Abdominal Pain HPI - General Chief Complaint: Abdominal Pain Stated Complaint: ABD PAIN/NAUSEA/VOMITING Time Seen by Provider: 04/11/19 08:18 Source: patient Mode of arrival: Ambulatory Limitations: No Limitations - History of Present Illness Initial Comments: This is a 28-year-old female with multiple visits to the emergency department in general. She was found to have an appendicolith and associated pain. She did not have appendicitis. She went onto have an appendectomy laparoscopically for persistent pain. Patient states that she was here a few days ago for the same symptoms. She states that she's had one bowel movement since her surgery. She is not vomiting. She states can eat. She complains of discomfort in the epigastric area only. It does not radiate. She has not measured her temperature. I discussed her case with her surgeon Dr. Hernandez who states that she has not followed up in the office as requested. MD Complaint: abdominal pain -: Gradual, week(s) Location: epigastric Radiation: none Migration to: no migration Severity: moderate Quality: aching Consistency: intermittent Improves With: nothing Worsens With: eating Associated Symptoms: denies other symptoms, nausea, constipation. denies: vomiting, diarrhea, fever (did not measure temperature), chills - Related Data Previous Rx's Medication Instructions Recorded Last Taken Type Nystatin Oint [Mycostatin Oint] 1 applicatio TP BID 7 Days #1 tube 03/24/18 Unknown Rx HYDROcodone/APAP 5-325 [[place] 1 each PO Q6H PRN #10 tablet 03/25/19 Unknown Rx 5-325 mg TAB] Ondansetron [Zofran Odt] 4 mg PO Q4HR PRN #20 tab.rapdis 04/06/19 Unknown Rx Promethazine [Phenergan TAB] 25 mg PO Q6HR PRN #20 tab 04/06/19 Unknown Rx Sulfamethoxazole/Trimethoprim 1 each PO BID #14 tablet 04/06/19 Unknown Rx [Bactrim DS TAB] Dicyclomine [Bentyl] 10 mg PO QID PRN #20 capsule 04/08/19 Unknown Rx Famotidine [Pepcid] 20 mg PO BID #10 tablet 04/08/19 Unknown Rx Metoclopramide [Reglan] 10 mg PO QID PRN #30 tablet 04/08/19 Unknown Rx Promethazine [Phenergan SUPPOS] 50 mg [place] Q6H PRN #15 supp.rect 04/08/19 Unknown Rx Lansoprazole [Prevacid] 15 mg PO BID #30 cap 04/11/19 Unknown Rx Ondansetron [Zofran Odt] 4 mg PO Q6H #7 tab.rapdis 04/11/19 Unknown Rx traMADol [Ultram] 50 mg PO Q6HR PRN #10 tablet 04/11/19 Unknown Rx Allergies Allergy/AdvReac Type Severity Reaction Status Date / Time No Known Allergies Allergy Verified 04/08/19 16:35 ED Review of Systems ROS: Stated complaint: ABD PAIN/NAUSEA/VOMITING Other details as noted in HPI Constitutional: denies: chills, fever Eyes: denies: eye pain, eye discharge, vision change ENT: denies: ear pain, throat pain Respiratory: denies: cough, shortness of breath, wheezing Cardiovascular: denies: chest pain, palpitations Endocrine: no symptoms reported Gastrointestinal: abdominal pain, nausea. denies: diarrhea Genitourinary: denies: urgency, dysuria, discharge Musculoskeletal: denies: back pain, joint swelling, arthralgia Skin: denies: rash, lesions Neurological: denies: headache, weakness, paresthesias Psychiatric: denies: anxiety, depression Hematological/Lymphatic: denies: easy bleeding, easy bruising ED Past Medical Hx - Past Medical History Previous Medical History?: Yes Hx Hypertension: No Hx Congestive Heart Failure: No Hx Diabetes: No Hx Deep Vein Thrombosis: No Hx Renal Disease: No Hx Sickle Cell Disease: No Hx Seizures: No Hx Asthma: No Hx COPD: No Hx HIV: No Additional medical history: Vaginal yeast infection. Bacterial vaginosis. Abnormal menses - Surgical History Hx Appendectomy: Yes - Social History Smoking Status: Never Smoker Substance Use Type: Prescribed - Medications Home Medications: Home Medications Medication Instructions Recorded Confirmed Last Taken Type Nystatin Oint [Mycostatin Oint] 1 applicatio TP BID 7 Days #1 tube 03/24/18 Un known Rx HYDROcodone/APAP 5-325 [[place] 1 each PO Q6H PRN #10 tablet 03/25/19 Unknown Rx 5-325 mg TAB] Ondansetron [Zofran Odt] 4 mg PO Q4HR PRN #20 tab.rapdis 04/06/19 Unknown Rx Promethazine [Phenergan TAB] 25 mg PO Q6HR PRN #20 tab 04/06/19 Unknown Rx Sulfamethoxazole/Trimethoprim 1 each PO BID #14 tablet 04/06/19 Unknown Rx [Bactrim DS TAB] Dicyclomine [Bentyl] 10 mg PO QID PRN #20 capsule 04/08/19 Unknown Rx Famotidine [Pepcid] 20 mg PO BID #10 tablet 04/08/19 Unknown Rx Metoclopramide [Reglan] 10 mg PO QID PRN #30 tablet 04/08/19 Unknown Rx Promethazine [Phenergan SUPPOS] 50 mg [place] Q6H PRN #15 supp.rect 04/08/19 Unknown Rx Lansoprazole [Prevacid] 15 mg PO BID #30 cap 04/11/19 Unknown Rx Ondansetron [Zofran Odt] 4 mg PO Q6H #7 tab.rapdis 04/11/19 Unknown Rx traMADol [Ultram] 50 mg PO Q6HR PRN #10 tablet 04/11/19 Unknown Rx ED Physical Exam - General Limitations: No Limitations General appearance: alert, in no apparent distress - Head Head exam: Present: atraumatic, normocephalic - Eye Eye exam: Present: normal appearance. Absent: scleral icterus - ENT ENT exam: Present: mucous membranes moist - Neck Neck exam: Present: normal inspection. Absent: tenderness, meningismus - Respiratory Respiratory exam: Present: normal lung sounds bilaterally. Absent: respiratory distress - Cardiovascular Cardiovascular Exam: Present: regular rate, normal rhythm. Absent: systolic murmur, diastolic murmur, rubs, gallop - GI/Abdominal GI/Abdominal exam: Present: soft, normal bowel sounds, other (this is a totally scaphoid abdomen without tenderness on exam. The surgical scar is well-healed. Bowel sounds are normal.). Absent: distended, tenderness, guarding, rebound, rigid, organomegaly, mass, bruit, pulsatile mass, hernia - Extremities Exam Extremities exam: Present: normal inspection - Back Exam Back exam: Present: normal inspection - Neurological Exam Neurological exam: Present: alert, oriented X3, CN II-XII intact. Absent: motor sensory deficit - Psychiatric Psychiatric exam: Present: normal affect, normal mood - Skin Skin exam: Present: warm, dry, intact, normal color. Absent: rash ED Course Vital Signs 04/11/19 07:07 Temperature 98.5 F Pulse Rate 110 H Respiratory 18 Rate Blood Pressure 134/98 O2 Sat by Pulse 100 Oximetry - Reevaluation(s) Reevaluation #1: I discussed the case with Dr. Hernandez the patient's surgeon. He does not feel there is any indication to repeat the patient's CT. He believes as do I that the patient is not suffering a surgical complication. We talked about GI referral. I give the patient Protonix potassium and fluids. Dr. Hernandez would like her to follow up with him in the office. He does not feel there is any indication for admission at this time. I will give the patient a prescription for Ultram and Zofran and lansoprazole. 04/11/19 09:57 ED Medical Decision Making - Lab Data Result diagrams: 04/11/19 07:16 04/11/19 07:16 Laboratory Results - last 24 hr 04/11/19 04/11/19 04/11/19 07:16 07:16 07:29 WBC 5.2 RBC 6.00 H Hgb 13.1 Hct 41.8 MCV 70 L MCH 22 L MCHC 31 RDW 18.5 H Plt Count 350 [place] % (Auto) Spreader Box Operator Sodium 134 L Potassium 3.1 L D Chloride 94.0 L Carbon Dioxide 24 Anion Gap 19 BUN 8 Creatinine 0.9 Estimated GFR > 60 BUN/Creatinine Ratio 9 Glucose 128 H Calcium 9.3 Total Bilirubin 0.50 AST 13 ALT 9 Alkaline Phosphatase 86 Total Protein 8.5 H Albumin 4.3 Albumin/Globulin Ratio 1.0 Lipase 54 Urine Color Terese Urine Turbidity Cloudy Urine pH 5.0 Ur Specific [place] 1.021 Urine Protein 100 mg/dl Urine Glucose (UA) Neg Urine Ketones Tr Urine Blood Lg Urine Nitrite Neg Urine Bilirubin Neg Urine Urobilinogen < 2.0 Ur Leukocyte Esterase Neg Urine WBC (Auto) 5.0 Urine RBC (Auto) 8.0 U Epithel Cells (Auto) 3.0 Urine Bacteria (Auto) 2+ Urine Mucus 3+ Critical care attestation.: If time is entered above; I have spent that time in minutes in the direct care of this critically ill patient, excluding procedure time. ED Disposition Clinical Impression: Hypokalemia Abdominal pain Qualifiers: Abdominal location: epigastric Qualified Code(s): R10.13 - Epigastric pain Gastritis Qualifiers: Gastritis type: unspecified gastritis Chronicity: unspecified Gastritis bleeding: without bleeding Qualified Code(s): K29.70 - Gastritis, unspecified, without bleeding Disposition: TO HOME OR SELFCARE Is pt being admited?: No Does the pt Need Aspirin: No Condition: Stable Instructions: Abdominal Pain (ED), Hypokalemia (ED), Gastritis (ED) Additional Instructions: Avoid any gastric irritants. Avoid marijuana. Rx as directed. Further evaluation with your surgeon on Saturday. Return any acute change or problem. Prescriptions: Lansoprazole [Prevacid] 15 mg PO BID #30 cap traMADol [Ultram] 50 mg PO Q6HR PRN #10 tablet PRN Reason: Pain Ondansetron [Zofran Odt] 4 mg PO Q6H #7 tab.rapdis Referrals: BRITTANY HERNANDEZ MD [Staff Physician] - 2-3 Days Time of Disposition: 10:02
[2019-04-11] MEDS ORDERED: NACL 0.9% 1000 ML 1,000 ML IV ONE (08:56)
[2019-04-11 11:00] LABS: Basophils % (Manual) 0 % (0.0-1.8); Eosinophils % (Manual) 0 % (0.0-4.3); Total Cells Counted 100
[2019-04-11 11:01] LABS: Anisocytosis 1+; Ovalocytes Few
[2019-04-11 11:02] LABS: Large Platelets Few; Platelet Estimate Consistent w Auto
[2019-04-11 12:09] VITALS: BP 128/74
== END 2019-04-11 11:27 | disposition home or self-care (01) ==
LOC: ED 06:53
DX: K29.70 Gastritis, unspecified, without bleeding (principal); E87.6 Hypokalemia; Z79.899 Other long term (current) drug therapy
CPT/HCPCS: 36415; 80053; 81001; 83690; 85007; 85025; 96361; 96374; 96375; 99283; C9113; J2270; J2405; J7030

== ENCOUNTER 2020-02-10 11:15 | Emergency (ER) | payer MEDICAID ==
[2020-02-10 11:29] VITALS: BP 132/83
--- NOTE | 2020-02-10 12:45 | Emergency Department Report ---
Chief Complaint: Urogenital-Female Stated Complaint: VAGINAL DISCOMFORT/PAIN Time Seen by Provider: 02/10/20 12:41 - HPI History of Present Illness: 29-year-old -[place] female presents to the emergency room for 1 month history of vaginal itching. Patient denies any vaginal discharge vaginal bleeding. Patient reports she went to [facility] was prescribed a cream and states is not helping. Patient did not go back to follow-up. Patient denies any pain. - Exam Vital Signs: Vital Signs 02/10/20 11:26 Temperature 98.2 F Pulse Rate 80 Respiratory 16 Rate Blood Pressure 132/83 O2 Sat by Pulse 100 Oximetry Physical Exam: Patient is alert and oriented x3 no acute distress, Amatory without difficulty MSE screening note: Focused history and physical exam performed. Due to findings the following was ordered: 29-year-old -[place] female presents to the emergency room for 1 month history of vaginal itching. Patient denies any vaginal discharge vaginal bleeding. Patient reports she went to [facility] was prescribed a cream and states is not helping. Patient did not go back to follow-up. Patient denies any pain. [facility] provider ED Disposition for MSE Disposition: Z MED SCREENING EXAM-LEFT Is pt being admited?: No Does the pt Need Aspirin: No Condition: Stable Additional Instructions: Please follow-up with your primary care provider or [facility] provider. Referrals: PURVI HARRELL MD [Primary Care Provider] - 3-5 Days [facility] [Provider Group] - 3-5 Days EVAN MARTIN MD [Staff Physician] - 3-5 Days Forms: Work/School Release Form(ED)
== END 2020-02-10 13:01 | disposition left against medical advice (07) ==
LOC: ED 11:15
DX: N89.8 Other specified noninflammatory disorders of vagina (principal); Z53.21 Procedure and treatment not carried out due to patient leaving prior to being seen by health care provider

== ENCOUNTER 2020-11-21 00:40 | Emergency (ER) | payer MEDICAID ==
[2020-11-21] MEDS ORDERED: ACETAMINOPHEN 500 MG TAB PO ONE (00:47)
[2020-11-21] MEDS ORDERED: METOCLOPRAMIDE 10 MG/2 ML INJ IV ONE (00:47)
[2020-11-21] MEDS ORDERED: SODIUM CHLORIDE 0.9% 1000 ML 1,000 ML IV ONE (00:47)
[2020-11-21 00:55] VITALS: BP 132/74
[2020-11-21 01:27] LABS: Bacteria,Urine 1+ /HPF (Negative); Bilirubin,Urine NEG (Negative); Blood,Urine NEG (Negative); Color,Urine Yellow (Yellow); Mucus,Urine 3+ /HPF
--- NOTE | 2020-11-21 01:50 | Emergency Department Report ---
ED HPI - General Chief complaint: Nausea/Vomiting/Diarrhea Stated complaint: 9WEEKS /VOMITING Time Seen by Provider: 11/21/20 00:47 Source: patient, EMS Mode of arrival: Wheelchair Limitations: No Limitations - History of Present Illness Initial comments: This is a 30-year-old female nontoxic, well nourished in appearance, no acute signs of distress presents to the ED with c/o of vaginal bleeding, pelvic pain, n/v, and epigastric abdominal pain x several days. Patient stated is about 9 weeks . Describes pain as cramping. Patient denies any vaginal discharge or foul odor. Patient denies any chest pain, shortness of breathe, fever, chills, headache, stiff neck, numbness, tingling. Patient denies any urinary symptoms. Patient denies any allergies or PMH. MD Complaint: vaginal bleeding -: days(s) Location: pelvis, abdomen Radiation: none Severity: mild Severity scale (0 -10): 3 Quality: cramping Consistency: constant Improves with: none Worsens with: none Associated symptoms: nausea/vomiting, vaginal bleeding, abdominal pain. denies: vaginal discharge, dysuria, headache, vision changes, malaise, dysparuenia, rash, seizure, shortness of breath, syncope, weakness Vaginal bleeding: light :: Yes Pre-justine care: none - Related Data Previous Rx's Medication Instructions Recorded Last Taken Type Nystatin Oint [Mycostatin Oint] 1 applicatio TP BID 7 Days #1 tube 03/24/18 Unknown Rx HYDROcodone/APAP 5-325 [[place] 1 each PO Q6H PRN #10 tablet 03/25/19 Unknown Rx 5-325 mg TAB] Ondansetron [Zofran Odt] 4 mg PO Q4HR PRN #20 tab.rapdis 04/06/19 Unknown Rx Promethazine [Phenergan TAB] 25 mg PO Q6HR PRN #20 tab 04/06/19 Unknown Rx Sulfamethoxazole/Trimethoprim 1 each PO BID #14 tablet 04/06/19 Unknown Rx [Bactrim DS TAB] Dicyclomine [Bentyl] 10 mg PO QID PRN #20 capsule 04/08/19 Unknown Rx Famotidine [Pepcid] 20 mg PO BID #10 tablet 04/08/19 Unknown Rx Metoclopramide [Reglan] 10 mg PO QID PRN #30 tablet 04/08/19 Unknown Rx Promethazine [Phenergan SUPPOS] 50 mg [place] Q6H PRN #15 supp.rect 04/08/19 Unknown Rx Lansoprazole [Prevacid] 15 mg PO BID #30 cap 04/11/19 Unknown Rx Ondansetron [Zofran Odt] 4 mg PO Q6H #7 tab.rapdis 04/11/19 Unknown Rx traMADoL [Ultram] 50 mg PO Q6HR PRN #10 tablet 04/11/19 Unknown Rx Allergies Allergy/AdvReac Type Severity Reaction Status Date / Time No Known Allergies Allergy Verified 04/08/19 16:35 ED Review of Systems ROS: Stated complaint: 9WEEKS /VOMITING Other details as noted in HPI Comment: All other systems reviewed and negative Constitutional: denies: chills, fever Eyes: denies: eye pain, eye discharge, vision change ENT: denies: ear pain, throat pain Respiratory: denies: cough, shortness of breath, wheezing Cardiovascular: denies: chest pain, palpitations Endocrine: no symptoms reported Gastrointestinal: abdominal pain, nausea, vomiting. denies: diarrhea, constipation, hematemesis, melena, hematochezia Genitourinary: abnormal menses. denies: urgency, dysuria, discharge Musculoskeletal: denies: back pain, joint swelling, arthralgia Skin: denies: rash, lesions Neurological: denies: headache, weakness, paresthesias Psychiatric: denies: anxiety, depression Hematological/Lymphatic: denies: easy bleeding, easy bruising ED Past Medical Hx - Past Medical History Previous Medical History?: Yes Hx Hypertension: No Hx Congestive Heart Failure: No Hx Diabetes: No Hx Deep Vein Thrombosis: No Hx Renal Disease: No Hx Sickle Cell Disease: No Hx Seizures: No Hx Asthma: No Hx COPD: No Hx HIV: No Additional medical history: Vaginal yeast infection. Bacterial vaginosis. Abnormal menses - Surgical History Past Surgical History?: Yes Hx Appendectomy: Yes - Social History Smoking Status: Never Smoker Substance Use Type: None - Medications Home Medications: Home Medications Medication Instructions Recorded Confirmed Last Taken Type Nystatin Oint [Mycostatin Oint] 1 applicatio TP BID 7 Days #1 tube 03/24/18 Unknown Rx HYDROcodone/APAP 5-325 [[place] 1 each PO Q6H PRN #10 tablet 03/25/19 Unknown Rx 5-325 mg TAB] Ondansetron [Zofran Odt] 4 mg PO Q4HR PRN #20 tab.rapdis 04/06/19 Unknown Rx Promethazine [Phenergan TAB] 25 mg PO Q6HR PRN #20 tab 04/06/19 Unknown Rx Sulfamethoxazole/Trimethoprim 1 each PO BID #14 tablet 04/06/19 Unknown Rx [Bactrim DS TAB] Dicyclomine [Bentyl] 10 mg PO QID PRN #20 capsule 04/08/19 Unknown Rx Famotidine [Pepcid] 20 mg PO BID #10 tablet 04/08/19 Unknown Rx Metoclopramide [Reglan] 10 mg PO QID PRN #30 tablet 04/08/19 Unknown Rx Promethazine [Phenergan SUPPOS] 50 mg [place] Q6H PRN #15 supp.rect 04/08/19 Unknown Rx Lansoprazole [Prevacid] 15 mg PO BID #30 cap 04/11/19 Unknown Rx Ondansetron [Zofran Odt] 4 mg PO Q6H #7 tab.rapdis 04/11/19 Unknown Rx traMADoL [Ultram] 50 mg PO Q6HR PRN #10 tablet 04/11/19 Unknown Rx ED Physical Exam - General Limitations: No Limitations General appearance: alert, in no apparent distress - Head Head exam: Present: atraumatic, normocephalic - Eye Eye exam: Present: normal appearance - Neck Neck exam: Present: normal inspection, full ROM - Respiratory Respiratory exam: Present: normal lung sounds bilaterally. Absent: respiratory distress, wheezes, rales, rhonchi, stridor, chest wall tenderness, accessory muscle use, decreased breath sounds, prolonged expiratory - Cardiovascular Cardiovascular Exam: Present: regular rate, normal rhythm, normal heart sounds. Absent: bradycardia, tachycardia, irregular rhythm, systolic murmur, diastolic murmur, rubs, gallop - GI/Abdominal GI/Abdominal exam: Present: soft, normal bowel sounds. Absent: distended, tenderness, guarding, rebound, rigid, diminished bowel sounds - Extremities Exam Extremities exam: Present: full ROM - Back Exam Back exam: Present: normal inspection, full ROM. Absent: tenderness, CVA tenderness (R), CVA tenderness (L), muscle spasm, paraspinal tenderness, vertebral tenderness, rash noted - Neurological Exam Neurological exam: Present: alert, oriented X3, normal gait - Psychiatric Psychiatric exam: Present: normal affect, normal mood - Skin Skin exam: Present: warm, dry, intact, normal color. Absent: rash ED Course Vital Signs 11/21/20 00:46 Temperature 98.4 F Pulse Rate 90 Respiratory 16 Rate Blood Pressure 132/74 O2 Sat by Pulse 100 Oximetry - Reevaluation(s) Reevaluation #1: 11/21/20 01:48 Patient is speaking in full sentences with no signs of distress noted. ED Medical Decision Making - Medical Decision Making 30-year-old female that presents with abdominal pain, vaginal bleeding nausea vomiting. Patient is stable and was examined by me. Labs ordered. Ultrasound abdomen and OB has been ordered. After stated she cannot wait any longer and wants to leave AGAINST MEDICAL ADVICE. Patient was instructed and educated my concerns and further evaluation and treatment the patient refused to sign AGAINST MEDICAL ADVICE. Patient was instructed to follow-up with a primary care/OBGYN doctor EMILIANO or if symptoms worsen and continue return to emergency room as soon as possible. At time of discharge, the patient does not seem toxic or ill in appearance. No acute signs of distress noted. Patient agrees to discharge treatment plan of care. No further questions noted by the patient. Critical care attestation.: If time is entered above; I have spent that time in minutes in the direct care of this critically ill patient, excluding procedure time. ED Disposition Clinical Impression: Pelvic pain during , Vaginal bleeding during Abdominal pain Qualifiers: Abdominal location: epigastric Qualified Code(s): R10.13 - Epigastric pain Nausea & vomiting Qualifiers: Vomiting type: unspecified Vomiting Intractability: unspecified Qualified Code(s): R11.2 - Nausea with vomiting, unspecified Disposition: DC-07 LEFT AGAINST MED ADVICE Is pt being admited?: No Does the pt Need Aspirin: No Condition: Undetermined Additional Instructions: Follow-up with a primary care/OBGYN doctor EMILIANO or if symptoms worsen and continue return to emergency room as soon as possible. Your condition may be serious as instructed and educated today in the ER but you decided to leave AGAINST MEDICAL ADVICE. It is highly recommended to see a provider as soon as possible to rule out serious complications that was described to you during your ED stay. Referrals: PRIMARY CAREMD [Primary Care Provider] - EMILIANO EVAN MARTIN MD [Staff Physician] - EMILIANO [facility] [Provider Group] - EMILIANO [facility] [Provider Group] - EMILIANO Time of Disposition: 01:51
[2020-11-21 02:12] LABS: Alanine Aminotransferase 20 units/L (7-56); Albumin 4.2 g/dL (3.9-5); Blood Urea Nitrogen 7 mg/dL (7-17); Calcium 9.8 mg/dL (8.4-10.2); Hemolysis Index 4
[2020-11-21 02:46] LABS: Basophils % (Auto) 0.3 % (0.0-1.8); Eosinophils % (Auto) 0.1 % (0.0-4.3); Hematocrit 36.8 % (30.3-42.9); Hemoglobin 11.8 gm/dl (10.1-14.3); Lymphocytes # (Auto) 2.3 K/mm3 (1.2-5.4); Lymphocytes % (Auto) 20.7 % (13.4-35.0); Mean Corpuscular HGB Conc 32 % (30-34); Mean Corpuscular Volume 76 fl (79-97); Monocytes # (Auto) 0.9 K/mm3 (0.0-0.8); Platelet Count 385 K/mm3 (140-440); Red Blood Count 4.87 M/mm3 (3.65-5.03); Red Cell Distribution Width 17.4 % (13.2-15.2)
[2020-11-21 02:50] LABS: BUN/Creatinine Ratio 12
== END 2020-11-21 01:56 | disposition left against medical advice (07) ==
LOC: ED 00:40
DX: O20.9 Hemorrhage in early pregnancy, unspecified (principal); O21.8 Other vomiting complicating pregnancy; O26.891 Other specified pregnancy related conditions, first trimester; R10.13 Epigastric pain; Z3A.09 9 weeks gestation of pregnancy; Z90.49 Acquired absence of other specified parts of digestive tract; Z79.899 Other long term (current) drug therapy
CPT/HCPCS: 36415; 80053; 81001; 83690; 84702; 85025; 86900; 86901; 87086; 96374; 99283; J2765; J7030

== ENCOUNTER 2021-03-01 21:02 | Outpatient (CLI) | payer MEDICAID ==
[2021-03-01 22:23] VITALS: BP 126/73
[2021-03-01] MEDS ORDERED: ACETAMINOPHEN 325 MG/10.15 ML ORAL LIQD UNIT DOSE PO ONE ×2 (22:43→23:00)
== END 2021-03-02 00:16 | disposition home or self-care (01) ==
LOC: TRG 21:02 → APU 22:03 → TRG 03-02 00:16
PROVIDERS: ATTEND Obstetrics & Gynecology
DX: O26.892 Other specified pregnancy related conditions, second trimester (principal); R10.9 Unspecified abdominal pain; R10.2 Pelvic and perineal pain; Z3A.27 27 weeks gestation of pregnancy
CPT/HCPCS: 59025

== ENCOUNTER 2021-05-28 05:03 | Emergency (ER) | payer MEDICAID ==
[2021-05-28] MEDS ORDERED: TETRACAINE 0.5% OPHTH SOLN 4ML OU PRN (05:32)
[2021-05-28] MEDS ORDERED: FLUORESCEIN 1 MG STRIP OP ONE (05:32)
[2021-05-28 05:35] VITALS: BP 135/83
--- NOTE | 2021-05-28 06:03 | Emergency Department Report ---
ED Eye Problem HPI - General Chief complaint: Eye Problems Stated complaint: DOG SCRATCH LT EYE Source: patient Mode of arrival: Ambulatory Limitations: Language Barrier - History of Present Illness Initial comments: Patient is a A0 30-year-old -[place] female who is approximately 36 weeks gestation and who presents to the ED with complaint of acute onset persistent severe left thigh pain after her dog accidentally scratched her left eyeball 24 hours ago. Patient states that the pain has been constant, persistent and with a foreign body sensation. Patient states that she is up-to-date with all her vaccinations including tetanus. Patient denies vision loss, dizziness, syncope, headache, chest pain, fever, chills, nausea and vomiting or cough. MD chief complaint: eye pain (left eye pain), eye redness (left eye), eye injury (left) -: Sudden, hour(s) (24) Onset Description: sudden Location: left eye Place: home If Injury: direct trauma (dog scratched left eye) Eye Symptoms: redness, pain, foreign body sensation, blurry vision, photophobia Severity: severe Severity scale (0 -10): 7 If Pain, Quality: sharp, burning Consistency: constant Context: trauma, injury (dog scratched left eye) Associated Symptoms: none Treatments Prior to Arrival: irrigated eye, eyepatch - Related Data Patient Tetanus UTD: Yes Previous Rx's Medication Instructions Recorded Last Taken Type Nystatin Oint [Mycostatin Oint] 1 applicatio TP BID 7 Days #1 tube 03/24/18 Unknown Rx HYDROcodone/APAP 5-325 [Warren 1 each PO Q6H PRN #10 tablet 03/25/19 Unknown Rx 5-325 mg TAB] Ondansetron [Zofran Odt] 4 mg PO Q4HR PRN #20 tab.rapdis 04/06/19 Unknown Rx Promethazine [Phenergan TAB] 25 mg PO Q6HR PRN #20 tab 04/06/19 Unknown Rx Sulfamethoxazole/Trimethoprim 1 each PO BID #14 tablet 04/06/19 Unknown Rx [Bactrim DS TAB] Dicyclomine [Bentyl] 10 mg PO QID PRN #20 capsule 04/08/19 Unknown Rx Famotidine [Pepcid] 20 mg PO BID #10 tablet 04/08/19 Unknown Rx Metoclopramide [Reglan] 10 mg PO QID PRN #30 tablet 04/08/19 Unknown Rx Promethazine [Phenergan SUPPOS] 50 mg MD Q6H PRN #15 supp.rect 04/08/19 Unknown Rx Lansoprazole [Prevacid] 15 mg PO BID #30 cap 04/11/19 Unknown Rx Ondansetron [Zofran Odt] 4 mg PO Q6H #7 tab.rapdis 04/11/19 Unknown Rx traMADoL [Ultram] 50 mg PO Q6HR PRN #10 tablet 04/11/19 Unknown Rx Acetaminophen [Tylenol] 1,000 mg PO Q6HR #30 tablet 05/28/21 Unknown Rx Tobramycin 0.3% [Tobrex] 1 drop OP Q6HR #5 ml 05/28/21 Unknown Rx Allergies Allergy/AdvReac Type Severity Reaction Status Date / Time No Known Allergies Allergy Verified 04/08/19 16:35 ED Review of Systems ROS: Stated complaint: DOG SCRATCH LT EYE Other details as noted in HPI Constitutional: denies: chills, fever Eyes: eye pain (Left eye pain), other (Left eye injury). denies: eye discharge, vision change ENT: denies: ear pain, throat pain Respiratory: denies: cough, shortness of breath, wheezing Cardiovascular: denies: chest pain, palpitations Endocrine: no symptoms reported Gastrointestinal: denies: abdominal pain, nausea, diarrhea Genitourinary: denies: urgency, dysuria, discharge Musculoskeletal: denies: back pain, joint swelling, arthralgia Skin: denies: rash, lesions Neurological: denies: headache, weakness, paresthesias Psychiatric: denies: anxiety, depression Hematological/Lymphatic: denies: easy bleeding, easy bruising ED Past Medical Hx - Past Medical History Previous Medical History?: Yes Hx Hypertension: No Hx Congestive Heart Failure: No Hx Diabetes: No Hx Deep Vein Thrombosis: No Hx Renal Disease: No Hx Sickle Cell Disease: No Hx Seizures: No Hx Asthma: No Hx COPD: No Hx HIV: No Additional medical history: Vaginal yeast infection. Bacterial vaginosis. Abnormal menses - Surgical History Past Surgical History?: Yes Hx Appendectomy: Yes - Social History Smoking Status: Never Smoker Substance Use Type: None - Medications Home Medications: Home Medications Medication Instructions Recorded Confirmed Last Taken Type Nystatin Oint [Mycostatin Oint] 1 applicatio TP BID 7 Days #1 tube 03/24/18 Unknown Rx HYDROcodone/APAP 5-325 [Warren 1 each PO Q6H PRN #10 tablet 03/25/19 Unknown Rx 5-325 mg TAB] Ondansetron [Zofran Odt] 4 mg PO Q4HR PRN #20 tab.rapdis 04/06/19 Unknown Rx Promethazine [Phenergan TAB] 25 mg PO Q6HR PRN #20 tab 04/06/19 Unknown Rx Sulfamethoxazole/Trimethoprim 1 each PO BID #14 tablet 04/06/19 Unknown Rx [Bactrim DS TAB] Dicyclomine [Bentyl] 10 mg PO QID PRN #20 capsule 04/08/19 Unknown Rx Famotidine [Pepcid] 20 mg PO BID #10 tablet 04/08/19 Unknown Rx Metoclopramide [Reglan] 10 mg PO QID PRN #30 tablet 04/08/19 Unknown Rx Promethazine [Phenergan SUPPOS] 50 mg MD Q6H PRN #15 supp.rect 04/08/19 Unknown Rx Lansoprazole [Prevacid] 15 mg PO BID #30 cap 04/11/19 Unknown Rx Ondansetron [Zofran Odt] 4 mg PO Q6H #7 tab.rapdis 04/11/19 Unknown Rx traMADoL [Ultram] 50 mg PO Q6HR PRN #10 tablet 04/11/19 Unknown Rx Acetaminophen [Tylenol] 1,000 mg PO Q6HR #30 tablet 05/28/21 Unknown Rx Tobramycin 0.3% [Tobrex] 1 drop OP Q6HR #5 ml 05/28/21 Unknown Rx ED Physical Exam - General Limitations: Language Barrier General appearance: alert, in no apparent distress, anxious - Head Head exam: Present: atraumatic, normocephalic, normal inspection - Eye Eye exam: Present: normal appearance, PERRL, EOMI, other (Left corneal and conjunctival abrasion by identified on Coffey lamp exam using fluorescein dye) Pupils: Present: normal accommodation - ENT ENT exam: Present: normal exam, normal orophraynx, mucous membranes moist, TM's normal bilaterally, normal external ear exam - Neck Neck exam: Present: normal inspection, full ROM - Respiratory Respiratory exam: Present: normal lung sounds bilaterally. Absent: respiratory distress, wheezes, rales, stridor, chest wall tenderness, accessory muscle use, decreased breath sounds, prolonged expiratory - Cardiovascular Cardiovascular Exam: Present: normal rhythm, tachycardia, normal heart sounds. Absent: systolic murmur, diastolic murmur, rubs, gallop - GI/Abdominal GI/Abdominal exam: Present: soft, normal bowel sounds. Absent: tenderness, guarding, hyperactive bowel sounds, hypoactive bowel sounds, organomegaly, pulsatile mass - Extremities Exam Extremities exam: Present: normal inspection, full ROM, normal capillary refill - Back Exam Back exam: Present: normal inspection, full ROM. Absent: tenderness, CVA tenderness (R), CVA tenderness (L), muscle spasm, paraspinal tenderness, vertebral tenderness - Neurological Exam Neurological exam: Present: alert, oriented X3, CN II-XII intact, normal gait, reflexes normal - Psychiatric Psychiatric exam: Present: normal affect, normal mood, anxious - Skin Skin exam: Present: warm, dry, intact, normal color. Absent: rash ED Course Vital Signs 05/28/21 05:29 Temperature 99.0 F Pulse Rate 105 H Respiratory 14 Rate Blood Pressure 135/83 O2 Sat by Pulse 98 Oximetry ED Medical Decision Making - Medical Decision Making This is a A0 30-year-old -[place] female who is approximately 36 weeks gestation and who presents to the ED with complaint of acute onset persistent severe left thigh pain after her dog accidentally scratched her left eyeball 24 hours ago. Patient states that the pain has been constant, persistent and with a foreign body sensation. Patient states that she is up-to-date with all her vaccinations including tetanus. In the ED, patient is alert and oriented x3 and is not in any distress but appears to be in pain and is anxious. Patient was treated for pain in the ED and left eye was irrigated and tetracaine solution was also added to the left eye for anesthesia. Coffey lamp exam using fluorescein dye was used to evaluate the left eye injury. Physical exam of the left eye using Coffey lamp and fluorescein dye showed a small left corneal and conjunctival abrasion of the left eye. Patient visual acuity is intact. An eye patch was applied to the left eye and the patient was discharged home on pain medications and antibiotic eyedrops and was given a referral to an meter tester primary Dr. Alberts for further evaluation. Patient was discharged home on medications and advised to follow-up with the meter tester primary Dr. Alberts in 3 to 5 days for reevaluation. Patient was also advised return to the ED immediately if symptoms get worse. - Differential Diagnosis Corneal abrasion; eye injury; conjunctival abrasion; eye contusion Critical care attestation.: If time is entered above; I have spent that time in minutes in the direct care of this critically ill patient, excluding procedure time. ED Disposition Clinical Impression: Left eye injury Qualifiers: Encounter type: initial encounter Qualified Code(s): S05.92XA - Unspecified injury of left eye and orbit, initial encounter Injury of left conjunctiva and corneal abrasion Qualifiers: Encounter type: initial encounter Qualified Code(s): S05.02XA - Injury of conjunctiva and corneal abrasion without foreign body, left eye, initial encounter Disposition: TO HOME OR SELFCARE Is pt being admited?: No Does the pt Need Aspirin: No Condition: Stable Instructions: Corneal Abrasion, [id number] Additional Instructions: Apply the medication to the affected eye, take medication as needed for pain. Follow-up with the meter tester primary Dr. Alberts in 3 to 5 days for reevaluation. Return to the ED immediately if symptoms get worse. Prescriptions: Acetaminophen [Tylenol] 1,000 mg PO Q6HR #30 tablet Tobramycin 0.3% [Tobrex] 1 drop OP Q6HR #5 ml Referrals: ANNE ALBERTS MD [Staff Physician] - 3-5 Days Time of Disposition: 06:05 Print Language: BRAZILIAN
== END 2021-05-28 06:38 | disposition home or self-care (01) ==
LOC: ED 05:03
DX: S05.02XA Injury of conjunctiva and corneal abrasion without foreign body, left eye, initial encounter (principal); Z98.890 Other specified postprocedural states; W54.0XXA Bitten by dog, initial encounter; Y93.89 Activity, other specified; Y92.89 Other specified places as the place of occurrence of the external cause; Y99.8 Other external cause status
CPT/HCPCS: 99283